=== PATIENT | female | born 1995 | race Caucasian/White ===

== ENCOUNTER 2018-06-10 11:52 | Emergency (ER) | payer MEDICAID, SELFPAY ==
[2018-06-10 11:57] VITALS: BP 132/75; PULSE 87; RESP 18; TEMP 36.7; O2SAT 100
--- NOTE | 2018-06-10 12:20 | DI.US_ITS ---
SYMPTOMS/DIAGNOSIS: RIGHT UPPER QUADRANT ABDOMINAL PAIN X 9 DAYS, NAUSEA ABDOMINAL ULTRASOUND: Routine examination. Comparison is 06/10/17. The visualized liver parenchyma is normal in appearance. There is no evidence of cholelithiasis. The common bile duct is of normal diameter. The pancreas and spleen appear intact. No renal abnormality is seen. The abdominal aorta is of normal diameter. Normal appearance of IVC. IMPRESSION: Normal abdominal ultrasound.
--- NOTE | 2018-06-10 12:22 | W.ED.GENAD ---
Discharge Plan Disposition Patient Disposition: HOME Condition: Improving Discharge Details Chief Complaint: Abd Prob Clinical Impression: Abdominal pain Primary Care Provider: Jean Palm ED Provider: Vaughn Mclaughlin Home Meds and New Rx's Prescriptions: New sucralfate [Carafate] 1 gram tablet 1 gm PO Q6H 28 Days Qty: 112 RF: 0 Continued Mirena 1 EACH intrauterine device 1 ea Intrauterine ONCE Qty: 1 RF: 0 sertraline 50 MG tablet 100 mg PO DAILY RF: 0 Flovent HFA 10.6 GM HFA aerosol inhaler 1 gm Inhalation PRN PRNRF: 0 Discharge Instructions Instructions: Abdominal Pain (ED) Additional Instructions: Home to rest today. Avoid fatty, fried, spicy or tomato-based foods. Please take Carafate as prescribed. Return to the emergency department for any acute concern Medical Decision Making 22-year-old female states she has had 1 week of near constant right upper quadrant abdominal pain associated with nausea and vomiting. Minimally worsened with food. She reports subjective fever and chills. States she was seen at the [facility] on Saturday and had an unremarkable CT scan and blood work. She returns today complaining of ongoing discomfort and intolerance of food.she is afebrile with normal vital signs. She is tender in the right upper quadrant on exam. I obtained and reviewed records from visit to [facility] on June 08. These detail a renal colic CT that shows no acute intra-abdominal process and IUD present in the uterus labs reveal ALT of 15, AST 26, white blood cell count of 8, hematocrit 40 hCG was negative. Urinalysis unremarkable. Today patient has an unremarkable a white cell count and LFTs. Referred for right upper quadrant ultrasound which does not detail any specific acute findings. Given the patient's ongoing discomfort must consider a colitis, therefore she is referred for contrast-enhanced CT scan of the abdomen and pelvis. CT images do not reveal any acute findings other than trace free fluid. Discussed this with the patient. I will treat her for possible duodenal ulcer with a course of Carafate. She understands she may have physiologic trace fluid the fluid from ovarian cyst. Stable for outpatient management. Return precautions were discussed the patient prior to discharge Lab Data Lab results reviewed: Yes I reviewed the patient's lab results. Laboratory Results - last 24 hr 01/08/19 01/08/19 01/08/19 12:30 12:30 12:35 WBC 6.04 RBC 4.89 Hgb 13.5 Hct 41.1 MCV 84.0 MCH 27.6 MCHC 32.8 RDW 14.1 Plt Count 213 MPV 9.6 Immature Gran % 0.2 Neutrophils % 49.3 Lymphocytes % 36.8 Monocytes % 9.8 Eosinophils % 3.6 Basophils % 0.3 Absolute Neutrophils 2.98 Absolute Lymphocytes 2.22 Absolute Monocytes 0.59 Absolute Eosinophils 0.22 Absolute Basophils 0.02 Sodium 139 Potassium 3.8 Chloride 102 Carbon Dioxide 28.6 Anion Gap 8.4 BUN 12 Creatinine 0.76 Estimated GFR/1.73 m2 >= 60.00 Glucose 79 Calcium 9.3 Magnesium 1.7 L Total Bilirubin 1.3 H AST 13 L ALT 18 Alkaline Phosphatase 68 Total Protein 8.3 H Albumin 4.3 Lipase 252 Urine Color Yellow Urine Clarity Clear Urine pH 6.0 Ur Specific [place] 1.020 Urine Protein Negative Urine Ketones Negative Urine Blood Negative Urine Nitrite Negative Urine Bilirubin Negative Urine Urobilinogen 0.2 Ur Leukocyte Esterase Negative Urine Glucose Negative HPI General Mode of arrival: ambulatory. Date/Time Provider Initiated Documentation: 06/10/18 11:59. Limitations to Documentation: no limitations. Information obtained by: patient. History of Present Illness 22 year old F presents to the emergency department with the chief complaint of 1 week of right upper quadrant pain intermittent episodes of emesis. , described as moderate, Quality is described as aching, and is localized to the abdomen. Patient reports no radiation. Patient started experiencing this day(s) and it has been constant. No relieving factors improve symptom(s), No exacerbating factors reported . Patient notes fever/chills, loss of appetite, malaise and nausea/vomiting. Patient did receive the following treatments prior to arrival, none Related Data Home Medications Medication Instructions Recorded Confirmed Flovent HFA 1 gm INHALATION PRN PRN 05/14/15 06/10/18 Mirena 1 ea INTRAUTERINE ONCE #1 implant 01/30/18 06/10/18 sertraline 100 mg PO DAILY tab-cap 01/30/18 06/10/18 sucralfate [Carafate] 1 gm PO Q6H 28 Days #112 tab 06/10/18 Previous Rx's Medication Instructions Recorded sucralfate [Carafate] 1 gm PO Q6H 28 Days #112 tab 06/10/18 Allergies Allergy/AdvReac Type Severity Reaction Status Date / Time pollen extracts Allergy Mild runny nose Unverified 06/10/18 12:02 General Stated Complaint: Abd Prob AYAKA: 3 Review of Systems Review of Systems 6 systems reviewed and otherwise negative [facility] Medical History Asthma affecting , antepartum Surgical History Tonsillectomy and adenoidectomy (06/10/13) Family History Mother No problems noted. Father Neoplasm Sister Asthma Brother No problems noted. Brother No problems noted. Social History Smoking/Tobacco Use Status: Never Exam Narrative Exam Narrative: GEN: awake, alert, oriented 3. Pleasant, well groomed, interactive. HEAD: Normocephalic, atraumatic ENT: Mucous membranes moist, oropharynx unremarkable, External ear exam unremarkable EYES: PERRL, EOMI NECK: Full ROM, no MARCOS, no menigismus CHEST/RESP: Nontender, clear to auscultation bilateral, no wheeze/rhonchi/rales CARDIOVASCULAR: RRR, no murmur, rub james. 2+ Rad pulse bilateral ABDOMEN: Soft, tender in the right upper quadrant without rebound or guarding, no mass. +Bowel sounds EXT: Full ROM, no edema, no rash Neuro: Grossly normal neurologic exam, conversant, interactive. Psych: Speech fluent, thoughts congruent, affect normal Course Vital Signs Temperature 36.7 C 06/10/18 11:57 Pulse 87 06/10/18 11:57 Respiratory Rate 18 06/10/18 11:57 Blood Pressure 132/75 06/10/18 11:57 Pulse Oximetry 100 06/10/18 11:57 Temperature 36.7 C 06/10/18 11:57 Pulse 87 06/10/18 11:57 Respiratory Rate 18 06/10/18 11:57 Blood Pressure 132/75 06/10/18 11:57 Blood Pressure Position Sitting 06/10/18 11:57 Pulse Oximetry 100 06/10/18 11:57
[2018-06-10] MEDS: Normal Saline 1,000 ML 125 ML IV (12:30)
[2018-06-10] MEDS: Ondansetron 4 MG/2 ML VIAL IVP (12:30)
[2018-06-10] MEDS: Ketorolac 30 MG/ML VIAL IVP (12:30)
[2018-06-10 12:36] LABS: Abs Immature Grans 0.01 k/cumm (0.0-0.09); Absolute Basophil Count 0.02 k/cumm (0.0-0.2); Absolute Eosinophil Count 0.22 k/cumm (0.0-0.7); Absolute Lymphocyte Count 2.22 k/cumm (1.2-3.4); Absolute Monocyte Count 0.59 k/cumm (0.11-0.7); Absolute Neutrophil Count 2.98 k/cumm (1.2-6.7); Basophils % 0.3; Eosinophils % 3.6; HCT 41.1 % (36.0-46.0); HGB 13.5 g/dL (12.0-15.5); Immature Grans % 0.2; Lymphocytes % 36.8; Mean Corp. HGB Concentration 32.8 g/dL (32.0-36.0); Mean Corpuscular Hemoglobin 27.6 pg (27.0-33.0); Mean Platelet Volume 9.6 fL (8.0-11.0); Monocytes % 9.8; Neutrophils % 49.3; Platelet Count 213 x1000/uL (130-400); RBC 4.89 m/cumm (4.00-5.20); RBC Distribution Width 14.1 % (11.7-14.6); White Blood Cell Count 6.04 k/cumm (4.4-10.8)
[2018-06-10 12:53] LABS: Bilirubin Negative (Negative); Blood Negative (Negative); Clarity Clear; Glucose Negative (Negative); Ketones Negative (Negative); Leukocyte Esterase Negative (Negative); Nitrite Negative (Negative); Urobilinogen 0.2 EU/dL (Up TO 0.2)
[2018-06-10 12:58] LABS: ALT 18 U/L (12-78); AST 13 U/L (15-37); Albumin 4.3 g/dL (3.4-5.0); Alkaline Phosphatase 68 U/L (46-116); Anion Gap 8.4 mmol/L (3-11); BUN 12 mg/dL (7-18); Bilirubin, Total 1.3 mg/dL (0.2-1.0); CO2 28.6 mmol/L (21.0-32.0); CREATININE 0.76 mg/dL (0.55-1.02); Calcium 9.3 mg/dL (8.5-10.1); Chloride 102 mmol/L (98-107); Glucose 79 mg/dL (70-100); Lipase 252 U/L (73-393); Magnesium 1.7 mg/dL (1.8-2.4); Potassium 3.8 mmol/L (3.5-5.1); Sodium 139 mmol/L (136-145); Total Protein 8.3 g/dL (6.4-8.2)
--- NOTE | 2018-06-10 13:20 | DI.CT_ITS ---
SYMPTOMS/DIAGNOSIS: RIGHT ABDOMINAL PAIN, VOMITING CT SCAN OF THE ABDOMEN AND PELVIS: CT scan of the abdomen and pelvis was performed following the uneventful administration of intravenous and oral contrast material. The lung bases are clear. The liver, spleen, pancreas, gallbladder, bile ducts and adrenal glands are unremarkable. The kidneys are unremarkable, as is the urinary bladder. Note is made of an intrauterine device in good position. The ovaries are present. There appears to be a hemorrhagic cyst on the left ovary. There is a small amount of free fluid in the pelvis, which may be physiologic. The abdominal aorta is of normal caliber. No significant abdominal or pelvic adenopathy or pneumoperitoneum is present. The bowel is unremarkable. There is a normal appendix present. The bones show no acute abnormality. IMPRESSION: 1. A small amount of free fluid in the pelvis with a 1.8 cm cyst on the left ovary. This is likely physiologic. If there is continued concern, a pelvic ultrasound may be considered. 2. No evidence of an acute abdomen. The findings were discussed with the Emergency Department on the date of the examination.
[2018-06-10] MEDS: Omnipaque 350 MG/ML 50 ML BTL IJ (14:52)
[2018-06-10] MEDS: Breeza Beverage 473 ML BTL PO (14:52)
[2018-06-10] MEDS: Omnipaque 350 MG/ML 100 ML BTL IJ (14:53)
[2018-06-10 16:00] VITALS: BP 128/71; PULSE 79; RESP 16; TEMP 36.7; O2SAT 100
== END 2018-06-10 16:16 | disposition home or self-care (01) ==
PROVIDERS: Emergency Provider Emergency Medicine; PCP Family Medicine
DX: R10.11 Right upper quadrant pain (principal); R11.2 Nausea with vomiting, unspecified; Z97.5 Presence of (intrauterine) contraceptive device
CPT/HCPCS: 36415; 80053; 81025; 83690; 96361; 96375; 99285; 74177; 76700; 81003; 83735; 85025; 99283; J1885; J2405; J3490; Q9967

== ENCOUNTER 2019-06-09 16:18 | Outpatient (REF) | payer MEDICAID, SELFPAY ==
--- NOTE | 2019-06-09 15:00 | PAPFT_PTH ---
PATIENT: Albina Thorne LOC: [facility] U#:[id number] AGE/SX: 23/F ROOM: RE06/09/[address]: Mindi Zamudio : 1995 BED: DIS: 06/09/2019 SPEC #: [id number] RECD: 06/09/19 17:13 STATUS: LEXI REQ #: [id number] ALDO: 06/09/19 15:[address]: Mindi Zamudio DEPT: [facility] Cytology RECD BY: Virginia Felix ENTERED: 06/09/19 17:14 SP TYPE: PAPFT OTHR DR: Jean Palm Tissues: 1 - CX/ENDOCX FOR PAP SMEARS Procedures: PAP THIN PREP/UVM Screening Comments: [id number]
[2019-06-11 14:15] LABS: Chlamydia Result Negative (Negative); GC Result Negative (Negative)
== END 2019-06-09 16:38 ==
LOC: LBN 16:18
PROVIDERS: PCP Family Medicine; Visit Provider Advanced Practice Midwife
DX: Z34.91 Encounter for supervision of normal pregnancy, unspecified, first trimester (principal); Z11.3 Encounter for screening for infections with a predominantly sexual mode of transmission; Z12.4 Encounter for screening for malignant neoplasm of cervix
CPT/HCPCS: 87491; 87591; 88142

== ENCOUNTER 2019-06-09 18:30 | Outpatient (REF) | payer MEDICAID, SELFPAY ==
[2019-06-09 17:34] LABS: *AMPHETAMINES SCREEN URINE Negative (Negative); *BARBITURATES SCREEN URINE Negative (Negative); *BENZODIAZEPINES SCREEN URINE Negative (Negative); Cannabinoids THC Negative (Negative); Cocaine Screen,Urine Negative (Negative); METHADONE URINE SCREEN Negative (Negative); OPIATES URINE SCREEN Negative (Negative)
[2019-06-09 17:41] LABS: Tricyclic Antidepressants Negative (Negative)
[2019-06-15 18:39] LABS: Buprenorphine Negative; Norbuprenorphine Negative
== END 2019-06-09 18:50 ==
LOC: LBN 18:30
PROVIDERS: PCP Family Medicine; Visit Provider Advanced Practice Midwife
DX: Z34.91 Encounter for supervision of normal pregnancy, unspecified, first trimester (principal)
CPT/HCPCS: 80307; 87086

== ENCOUNTER 2019-06-15 10:07 | Outpatient (CLI) | payer MEDICAID, SELFPAY ==
[2019-06-15 11:26] LABS: Kit/Specimen SENT
[2019-06-15 11:44] LABS: Abs Immature Grans 0.01 k/cumm (0.0-0.09); Absolute Basophil Count 0.01 k/cumm (0.0-0.2); Absolute Eosinophil Count 0.16 k/cumm (0.0-0.7); Absolute Lymphocyte Count 1.99 k/cumm (1.2-3.4); Absolute Monocyte Count 0.48 k/cumm (0.11-0.7); Absolute Neutrophil Count 4.35 k/cumm (1.2-6.7); Basophils % 0.1; Eosinophils % 2.3; HCT 40.1 % (36.0-46.0); HGB 13.4 g/dL (12.0-15.5); Immature Grans % 0.1 %; Lymphocytes % 28.4; Mean Corp. HGB Concentration 33.4 g/dL (32.0-36.0); Mean Corpuscular Hemoglobin 28.4 pg (27.0-33.0); Mean Platelet Volume 9.7 fL (8.0-11.0); Monocytes % 6.9; Neutrophils % 62.2; Platelet Count 204 x1000/uL (130-400); RBC 4.72 m/cumm (4.00-5.20); RBC Distribution Width 13.5 % (11.7-14.6)
[2019-06-15 12:21] LABS: TSH (W/Ref FT4) 2.14 uIU/mL (0.36-3.74)
[2019-06-16 09:11] LABS: Hepatitis C Ab w Rflx HCV PCR Negative (Negative)
[2019-06-16 09:13] LABS: Hepatitis B Surface Ag Negative (Negative)
[2019-06-16 11:18] LABS: Rubella IgG Ab (UVM) Positive (See Note); Varicella IgG Antibody Positive (See Note)
[2019-06-16 13:11] LABS: Syphilis Total Ab w/Reflex Nonreactive (Nonreactive)
[2019-06-16 13:19] LABS: HIV-1/2 Ag & Ab Screen Negative (Negative)
[2019-06-18 15:14] LABS: Result Summary NEGATIVE; Specimen WB Whole Blood
== END 2019-06-15 10:27 ==
PROVIDERS: PCP Family Medicine; Visit Provider Advanced Practice Midwife
DX: Z34.91 Encounter for supervision of normal pregnancy, unspecified, first trimester (principal); Z36.89 Encounter for other specified antenatal screening
CPT/HCPCS: 36415; 86787; 86803; 86850; 86900; 86901; 87340; 87389; 81220; 84443; 85025; 86762; 86780

== ENCOUNTER 2019-06-26 11:29 | Outpatient (CLI) | payer MEDICAID, SELFPAY | END 2019-06-26 11:49 | PROVIDERS: PCP Family Medicine; Visit Provider Internal Medicine Cardiovascular Disease | DX: R55 Syncope and collapse (principal); I49.3 Ventricular premature depolarization | CPT/HCPCS: 93005; 93010; 93225 ==

== ENCOUNTER 2019-06-29 09:03 | Outpatient (CLI) | payer MEDICAID, SELFPAY ==
--- NOTE | 2019-06-29 10:08 | DI.US_ITS ---
APPROVED REPORT EXAM: Comprehensive 2D, Doppler, and color-flow Echocardiogram Patient Location: Out-Patient Shredder Picker: Maite Herman RDCS (AE) Indications: syncope. Syncope and collapse R55 Conclusion Left Ventricle : The left ventricle is normal size. The left ventricular systolic function is normal. The left ventricular ejection fraction is within the normal range. There is normal left ventricular wall thickness. There is normal LV segmental wall motion. The left ventricular diastolic function is normal. LVEF is estimated to be 55-60%. Right Ventricle : The right ventricle is normal size. The right ventricular systolic function appears normal. Atria : The left atrium size is normal. The right atrium size is normal. Aortic Valve : Aortic valve is trileaflet. No aortic regurgitation is present. There is no aortic isauro vular stenosis. 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 Tr haley mitral regurgitation. Great Vessels : IVC is normal in size and collapses >50% with inspiration. Mid RVSP is 15-18 mmHg. There is no prior echocardiogram available for comparison. Wall motion Left Ventricle The left ventricle is normal size. The left ventricular systolic function is normal. The left ventric ular ejection fraction is within the normal range. There is normal left ventricular wall thickness. T here is normal LV segmental wall motion. The left ventricular diastolic function is normal. LVEF is e stimated to be 55-60%. Right Ventricle The right ventricle is normal size. The right ventricular systolic function appears normal. Atria The left atrium size is normal. The right atrium size is normal. Aortic Valve Aortic valve is trileaflet. There is no aortic valvular stenosis. No aortic regurgitation is present. 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 Trace mitral regu rgitation. Tricuspid Valve The tricuspid valve leaflets are mildly thickened , but open well. Mild tricuspid regurgitation. Pulmonic Valve Mild pulmonic regurgitation. Great Vessels The aortic root is normal in size. IVC is normal in size and collapses >50% with inspiration. Mid RVS P is 15-18 mmHg. Pericardium There is no pericardial effusion. 2D Dimensions IVSd 0.95 cm F: 0.6-1.0 LV EDV A2C 112.1 mL PWd 0.95 cm F: 0.6 - 1.0 LV EDV A4C 107.9 mL LVDd 4.65 cm F: 3.8 - 5.2 LA Volume Index Biplane 23.5 mL/m2 LVDs 3.35 cm F: 2.2 - 3.5 LA Area A4C 14.99 cm2 Aortic Root 2.60 cm F: 2.7 - 3.3 LA Area A2C 13.98 cm2 RA Area A4C 10.47 cm2 EF AP4 58.0 % LVOT 2.10 cm (M/F) 1.5-2.5 EF AP2 59.1 % Ascending Aorta 2.07 cm F: 2.3 - 3.1 EF BP 56.7 % LVEF (Teich) 53.7 % IVC 1.78 cm LVEF (Corey's) 56.69 % F: 54 - 74 TAPSE 1.74 cm (M/F) <1.7 LV Volume 87.74 mL F: 46 - 106 LV Volume Index 50.13 mL/m2 F: 29 - 61 FS 27.60 % LV Diastology MV E' medial 0.127 (>0.07 m/s) E/A Ratio 2.8 LV E/e MED 6.60 (<14) PV S/D Ratio 0.63 MV E' lateral 0.205 (>0.1 m/s) TR Peak Velocity 1.97 m/s LV E/e LAT 4.10 (<14) Pulm Vein s 0.48 m/s Pulm Vein d 0.75 m/s LA vol/ BSA A2C s A-L 21.9 mL/m2 LA vol/ BSA A4C s A-L 21.7 mL/m2 Aortic Valve LVOT Area 3.51 cm2 AoV Area Vmax 2.84 cm2 LVOT Vmax 1.08 m/s AoV Area/ BSA (Vmax) 1.62 cm2/m2 LVOT Mean Ayaan. 0.76 m/s JASPER Mean Ayaan. 2.71 cm2 LVOT Peak Gr. 4.6 mmHg JASPER Mean Ayaan. Index 1.54 cm2/m2 LVOT Mean Gr. 2.6 mmHg LVOT VTI 0.206 m AoV Vmax 1.33 (0.5-1.3 m/s) AoV Mean Ayaan. 0.98 m/s AoV Peak Grad 7.1 mmHg LVOT SV 72.14 mL AoV Mean Grad 4.2 (<5 mmHg) AoV VTI 0.273 (0.18-0.25 m) AoV Area VTI 2.64 (2.5-4.5 cm2) AoV Area/ BSA (VTI) 1.51 cm/m2 Mitral Valve MV E Max Ayaan. 0.84 (0.4-1.3 m/s) RVOT Peak Gr. 2.85 mmHg MV A Velocity 0.30 (0.4-1.3 m/s) RVOT Mean Gr. 1.30 mmHg E/A Ratio 2.44 MV Decel. Time 189 (160-240 msec) MV PHT 55 msec MVA PHT 4.00 cm2 PV Peak Velocity 1.22 (0.5-1.5 m/s) RVOT Peak Ayaan. 0.84 m/s RVOT VTI 0.167 m Tricuspid Valve TR P. Gradient 15.5 mmHg TV Regurg Vmax 1.97 m/s RAP Estimate 3.00 mmHg RVSP 18.6 mmHg
== END 2019-06-29 09:23 ==
PROVIDERS: PCP Family Medicine; Visit Provider Internal Medicine Cardiovascular Disease
DX: R55 Syncope and collapse (principal); I36.8 Other nonrheumatic tricuspid valve disorders; I49.3 Ventricular premature depolarization
CPT/HCPCS: 93226; 93306

== ENCOUNTER 2019-06-29 11:54 | Outpatient (CLI) | payer MEDICAID, SELFPAY ==
--- NOTE | 2019-06-29 12:17 | W.HOLTRPT ---
Date of service: 06/29/19 Time of Service: 12:17 Holter Monitor Report Holter Monitor Note: There is a 2-day Holter monitor ordered for indication of syncope. ?Patient was in normal sinus rhythm for the majority of the recording. ?There were 0 episodes of supraventricular tachycardia and rare (less than 1%) premature atrial contractions. ?There were 0 episodes of ventricular tachycardia 6 single ventricular ectopic beats. ?There were no episodes of atrial fibrillation, no pauses greater than 3 seconds and no evidence of high degree heart block. ?Patient triggered events were associated with normal sinus rhythm and premature atrial contractions.
== END 2019-06-29 12:14 ==
PROVIDERS: PCP Family Medicine; Visit Provider Internal Medicine Cardiovascular Disease
DX: R55 Syncope and collapse (principal); I49.3 Ventricular premature depolarization
CPT/HCPCS: 93226

== ENCOUNTER 2019-08-04 01:56 | Outpatient (CLI) | payer MEDICAID, SELFPAY ==
--- NOTE | 2019-08-04 12:30 | DI.US_ITS ---
EXAM: US OB 2-3 TRIMESTER CLINICAL HISTORY: , Z34.90 TECHNIQUE: Ultrasound performed using standard protocol. COMPARISON: None FINDINGS: The fetus is in breech position. The placenta is anterior and low lying. The tip of the placenta ming ures 1.6 cm from the internal os. Biometric measurements correspond to 19 weeks 1 day. No abnor malities are identified. The amount of amniotic fluid appears visually normal. IMPRESSION: Low-lying placenta. survey is within normal limits. DATA REPOSITORY:
== END 2019-08-04 02:16 ==
PROVIDERS: PCP Family Medicine; Visit Provider Obstetrics & Gynecology
DX: O44.42 Low lying placenta NOS or without hemorrhage, second trimester (principal); Z3A.19 19 weeks gestation of pregnancy
CPT/HCPCS: 76805

== ENCOUNTER 2019-09-18 12:33 | Outpatient (REF) | payer MEDICAID, SELFPAY ==
[2019-09-18 14:24] LABS: ALT 14 U/L (14-59); AST 15 U/L (15-37); Albumin 3.2 g/dL (3.4-5.0); Alkaline Phosphatase 64 U/L (46-116); Anion Gap 9.5 mmol/L (3-11); BUN 8 mg/dL (7-18); Bilirubin, Total 0.7 mg/dL (0.2-1.0); CO2 26.5 mmol/L (21.0-32.0); CREATININE 0.57 mg/dL (0.55-1.02); Calcium 8.4 mg/dL (8.5-10.1); Chloride 102 mmol/L (98-107); Glucose 89 mg/dL (74-106); Potassium 3.8 mmol/L (3.5-5.1); Sodium 138 mmol/L (136-145)
[2019-09-18 17:34] LABS: COMMENT (LAB VIEW ONLY) 139.38 mg/dL; Prot/Crea Ur Ratio 0.12
== END 2019-09-18 12:53 ==
LOC: LBN 12:33
PROVIDERS: PCP Family Medicine; Visit Provider Obstetrics & Gynecology Gynecology
DX: R55 Syncope and collapse (principal); Z3A.25 25 weeks gestation of pregnancy
CPT/HCPCS: 80053; 85027; 82565; 84156

== ENCOUNTER 2019-09-23 17:05 | Observation (INO) | payer MEDICAID, SELFPAY | END 2019-09-23 20:45 | disposition home or self-care (01) | PROVIDERS: Admitting Provider Obstetrics & Gynecology Gynecology; PCP Family Medicine; Visit Provider Obstetrics & Gynecology Gynecology | DX: O46.8X2 Other antepartum hemorrhage, second trimester (principal); O26.892 Other specified pregnancy related conditions, second trimester; Z3A.25 25 weeks gestation of pregnancy; R10.9 Unspecified abdominal pain | CPT/HCPCS: G0378 ==

== ENCOUNTER 2019-09-28 00:27 | Outpatient (CLI) | payer MEDICAID, SELFPAY ==
--- NOTE | 2019-09-28 07:15 | DI.US_ITS ---
EXAM: US OB 2-3 TRIMESTER W MOD CLINICAL HISTORY: light episodic pink vagina discharge 25w EGA,o46.90 TECHNIQUE: Ultrasound performed using standard protocol. COMPARISON: US OB 2-3 TRIMESTER from 08/04/2019 FINDINGS: Ob ultrasound was performed utilizing limited scanning protocol to evaluate placenta and cervix. Pre dicted gestational age is 26 weeks 3 days. Placenta is anterior. The placental tip is 5.3 cm above the internal os, as compared to 1.6 cm from the internal os on prior scan of 08/04/2019. The cervical length is 4.5 cm. There is visually a normal quantity of amniotic fluid. IMPRESSION: DATA REPOSITORY:
== END 2019-09-28 00:47 ==
PROVIDERS: PCP Family Medicine; Visit Provider Obstetrics & Gynecology Gynecology
DX: O26.852 Spotting complicating pregnancy, second trimester (principal); Z3A.26 26 weeks gestation of pregnancy
CPT/HCPCS: 76805

== ENCOUNTER 2019-09-29 14:39 | Outpatient (CLI) | payer MEDICAID, SELFPAY ==
[2019-09-29 15:33] LABS: Abs Immature Grans 0.05 k/cumm (0.0-0.09); Absolute Basophil Count 0.01 k/cumm (0.0-0.2); Absolute Lymphocyte Count 2.05 k/cumm (1.2-3.4); Absolute Monocyte Count 0.84 k/cumm (0.11-0.7); Basophils % 0.1; Eosinophils % 1.8; HCT 38.4 % (36.0-46.0); HGB 12.7 g/dL (12.0-15.5); Immature Grans % 0.5 %; Lymphocytes % 18.9; Mean Corp. HGB Concentration 33.1 g/dL (32.0-36.0); Mean Corpuscular Hemoglobin 29.5 pg (27.0-33.0); Mean Corpuscular Volume 89.1 fL (80-95); Mean Platelet Volume 9.4 fL (8.0-11.0); Monocytes % 7.7; Platelet Count 247 x1000/uL (130-400); RBC 4.31 m/cumm (4.00-5.20); RBC Distribution Width 14.2 % (11.7-14.6); White Blood Cell Count 10.85 k/cumm (4.4-10.8)
[2019-09-29 16:05] LABS: ALT 14 U/L (14-59); AST 13 U/L (15-37); Albumin 3.1 g/dL (3.4-5.0); Alkaline Phosphatase 64 U/L (46-116); Anion Gap 7.6 mmol/L (3-11); BUN 6 mg/dL (7-18); Bilirubin, Total 0.6 mg/dL (0.2-1.0); CO2 26.4 mmol/L (21.0-32.0); CREATININE 0.52 mg/dL (0.55-1.02); Calcium 8.8 mg/dL (8.5-10.1); Chloride 102 mmol/L (98-107); Glucose 94 mg/dL (74-106); Potassium 3.7 mmol/L (3.5-5.1); Sodium 136 mmol/L (136-145); Total Protein 7.5 g/dL (6.4-8.2)
[2019-09-29 16:52] LABS: PROTEIN 12.8 mg/dL
[2019-09-29 16:54] LABS: COMMENT (LAB VIEW ONLY) 90.11 mg/dL; Prot/Crea Ur Ratio 0.14
== END 2019-09-29 14:59 ==
PROVIDERS: PCP Family Medicine; Visit Provider Obstetrics & Gynecology
DX: O13.2 Gestational [pregnancy-induced] hypertension without significant proteinuria, second trimester (principal)
CPT/HCPCS: 80053; 82565; 84156; 85025

== ENCOUNTER 2019-09-30 15:53 | Outpatient (CLI) | payer MEDICAID, SELFPAY ==
[2019-09-30 17:15] LABS: Fetal Fibronectin Negative (Negative)
== END 2019-09-30 16:13 ==
PROVIDERS: PCP Family Medicine; Visit Provider Obstetrics & Gynecology
DX: O26.892 Other specified pregnancy related conditions, second trimester (principal); O13.2 Gestational [pregnancy-induced] hypertension without significant proteinuria, second trimester; Z3A.26 26 weeks gestation of pregnancy
CPT/HCPCS: 59025; 82731

== ENCOUNTER 2019-09-30 15:58 | Outpatient (REF) | payer MEDICAID, SELFPAY ==
[2019-09-30 16:51] LABS: PROTEIN 11.5 mg/dL (0.0-11.9)
[2019-09-30 16:57] LABS: TOTAL PROTEIN,URINE TIMED 94.3 mg/24hr (0.0-149.1); Total Volume 820 ml
== END 2019-09-30 16:18 ==
LOC: LBN 15:58
PROVIDERS: PCP Family Medicine; Visit Provider Obstetrics & Gynecology
DX: O13.2 Gestational [pregnancy-induced] hypertension without significant proteinuria, second trimester (principal)
CPT/HCPCS: 81050; 84155

== ENCOUNTER 2019-10-06 07:45 | Outpatient (CLI) | payer MEDICAID, SELFPAY ==
--- NOTE | 2019-10-06 10:00 | DI.US_ITS ---
EXAM: US OB ESTHER WEIGHT CLINICAL HISTORY: Gestational hypertension,O13.9. COMPARISON: US OB 2-3 TRIMESTER W MOD from 09/28/2019 TECHNIQUE: Transabdominal obstetrical ultrasound performed. FINDINGS: Sonographic images demonstrate a single living intrauterine gestation in breech position. The placenta is anterior and grade 2. Sonographically assessed gestational age is: 28 weeks 5 days Estimated date of delivery based on this ultrasound is: 24 December 2019 Estimated date of delivery based upon 1st ultrasound: 01 January 2020. heart rate motion : Visualized but not measured . Amniotic fluid index: 15.2 cm.. Amount of fluid is within normal limits. Estimated weight 1222 grams = 71 % IMPRESSION: Single live intrauterine gestation as above. DATA REPOSITORY:
== END 2019-10-06 08:05 ==
PROVIDERS: PCP Family Medicine; Visit Provider Obstetrics & Gynecology
DX: O13.3 Gestational [pregnancy-induced] hypertension without significant proteinuria, third trimester (principal); Z3A.28 28 weeks gestation of pregnancy
CPT/HCPCS: 76816

== ENCOUNTER 2019-10-08 11:17 | Observation (INO) | payer MEDICAID, SELFPAY ==
[2019-10-08 11:39] LABS: Abs Immature Grans 0.03 k/cumm (0.0-0.09); Absolute Basophil Count 0.01 k/cumm (0.0-0.2); Absolute Eosinophil Count 0.12 k/cumm (0.0-0.7); Absolute Lymphocyte Count 1.98 k/cumm (1.2-3.4); Absolute Monocyte Count 0.69 k/cumm (0.11-0.7); Absolute Neutrophil Count 6.14 k/cumm (1.2-6.7); Basophils % 0.1; Eosinophils % 1.3; HCT 36.9 % (36.0-46.0); HGB 12.1 g/dL (12.0-15.5); Immature Grans % 0.3 %; Lymphocytes % 22.1; Mean Corp. HGB Concentration 32.8 g/dL (32.0-36.0); Mean Corpuscular Hemoglobin 28.8 pg (27.0-33.0); Mean Corpuscular Volume 87.9 fL (80-95); Mean Platelet Volume 9.4 fL (8.0-11.0); Monocytes % 7.7; Neutrophils % 68.5; Platelet Count 190 x1000/uL (130-400); RBC Distribution Width 13.7 % (11.7-14.6); White Blood Cell Count 8.97 k/cumm (4.4-10.8)
[2019-10-08 12:02] LABS: ALT 15 U/L (14-59); AST 15 U/L (15-37); Albumin 2.9 g/dL (3.4-5.0); Alkaline Phosphatase 67 U/L (46-116); Anion Gap 8.9 mmol/L (3-11); BUN 5 mg/dL (7-18); Bilirubin, Total 0.6 mg/dL (0.2-1.0); CO2 24.1 mmol/L (21.0-32.0); CREATININE 0.51 mg/dL (0.55-1.02); Calcium 8.4 mg/dL (8.5-10.1); Chloride 103 mmol/L (98-107); Glucose 83 mg/dL (74-106); Potassium 3.6 mmol/L (3.5-5.1); Sodium 136 mmol/L (136-145); Total Protein 7.1 g/dL (6.4-8.2)
[2019-10-08 12:02] LABS: PROTEIN 23.2 mg/dL
[2019-10-08 12:04] LABS: COMMENT (LAB VIEW ONLY) 81.03 mg/dL; Prot/Crea Ur Ratio 0.28
== END 2019-10-08 13:25 | disposition home or self-care (01) ==
PROVIDERS: Admitting Provider Obstetrics & Gynecology; PCP Family Medicine; Visit Provider Obstetrics & Gynecology
DX: O26.892 Other specified pregnancy related conditions, second trimester (principal); O13.2 Gestational [pregnancy-induced] hypertension without significant proteinuria, second trimester; Z3A.27 27 weeks gestation of pregnancy
CPT/HCPCS: 36415; 80053; 59025; 82565; 84156; 85025; G0378

== ENCOUNTER 2019-10-10 13:04 | Outpatient (CLI) | payer MEDICAID, SELFPAY | END 2019-10-10 13:24 | PROVIDERS: PCP Family Medicine; Visit Provider Obstetrics & Gynecology | DX: O26.893 Other specified pregnancy related conditions, third trimester (principal); O13.3 Gestational [pregnancy-induced] hypertension without significant proteinuria, third trimester; Z3A.28 28 weeks gestation of pregnancy | CPT/HCPCS: 99211 ==

== ENCOUNTER 2019-10-12 10:59 | Outpatient (CLI) | payer MEDICAID, SELFPAY ==
[2019-10-12 12:18] LABS: HCT 37.1 % (36.0-46.0); HGB 12.3 g/dL (12.0-15.5); Mean Corp. HGB Concentration 33.2 g/dL (32.0-36.0); Mean Corpuscular Hemoglobin 29.1 pg (27.0-33.0); Mean Corpuscular Volume 87.9 fL (80-95); Mean Platelet Volume 9.6 fL (8.0-11.0); Platelet Count 201 x1000/uL (130-400); RBC 4.22 m/cumm (4.00-5.20); RBC Distribution Width 13.7 % (11.7-14.6); White Blood Cell Count 9.71 k/cumm (4.4-10.8)
[2019-10-12 12:24] LABS: Glucose,1 Hr (Glucola) 88 mg/dL (80-140)
[2019-10-12 12:29] LABS: ALT 13 U/L (14-59); AST 14 U/L (15-37); Alkaline Phosphatase 69 U/L (46-116); Anion Gap 8.6 mmol/L (3-11); BUN 5 mg/dL (7-18); Bilirubin, Total 0.6 mg/dL (0.2-1.0); CO2 25.4 mmol/L (21.0-32.0); CREATININE 0.65 mg/dL (0.55-1.02); Calcium 8.4 mg/dL (8.5-10.1); Chloride 103 mmol/L (98-107); Glucose 89 mg/dL (74-106); Potassium 3.6 mmol/L (3.5-5.1); Sodium 137 mmol/L (136-145); Total Protein 6.8 g/dL (6.4-8.2)
[2019-10-12 12:31] LABS: PROTEIN 19.5 mg/dL
[2019-10-12 12:32] LABS: COMMENT (LAB VIEW ONLY) 109.16 mg/dL; Prot/Crea Ur Ratio 0.17
== END 2019-10-12 11:19 ==
PROVIDERS: PCP Family Medicine; Visit Provider Obstetrics & Gynecology
DX: O13.3 Gestational [pregnancy-induced] hypertension without significant proteinuria, third trimester (principal); O09.93 Supervision of high risk pregnancy, unspecified, third trimester
CPT/HCPCS: 80053; 82950; 85027; 86850; 86900; 86901; 90384; 82565; 84156

== ENCOUNTER 2019-10-20 15:15 | Observation (INO) | payer MEDICAID, SELFPAY ==
[2019-10-20 16:21] LABS: ROM Plus Negative
--- NOTE | 2019-10-20 16:30 | W.PM.PROGNOT ---
Date of Service Date of service: 10/20/19 Time of Service: 16:30 Assessment and Plan Assessment and plan (1) Vaginal bleeding during : Status: Acute Assessment and plan: ROM plus negative. ESTHER measured at 16.1. Cx closed on exam. NST appropriate for gestational age. Ok to discharge home. Follow up in the clinic in one week. (2) Gestational hypertension: Status: Acute Subjective Subjective Interval history since last seen: 23 year @ 29 weeks brought from clinic for evaluation of possible leakage of fluid and a small amount of vaginal spotting. She denies contractions. Reports good movement. Exam Other: Cx closed, long. No blood in vaginal vault. Objective Objective Clinical Data: Laboratory Results Membranes Rupture Negative 10/20/19 15:35
== END 2019-10-20 16:33 | disposition home or self-care (01) ==
PROVIDERS: Admitting Provider Obstetrics & Gynecology; PCP Family Medicine; Visit Provider Obstetrics & Gynecology
DX: O46.8X3 Other antepartum hemorrhage, third trimester (principal); Z3A.29 29 weeks gestation of pregnancy; O13.3 Gestational [pregnancy-induced] hypertension without significant proteinuria, third trimester; O60.03 Preterm labor without delivery, third trimester
CPT/HCPCS: 84112; 99232; 59025; G0378

== ENCOUNTER 2019-10-26 16:18 | Observation (INO) | payer MEDICAID, SELFPAY ==
[2019-10-26 17:16] LABS: HCT 36.5 % (36.0-46.0); HGB 12.2 g/dL (12.0-15.5); Mean Corp. HGB Concentration 33.4 g/dL (32.0-36.0); Mean Corpuscular Volume 86.9 fL (80-95); Mean Platelet Volume 9.5 fL (8.0-11.0); Platelet Count 229 x1000/uL (130-400); RBC Distribution Width 13.4 % (11.7-14.6)
[2019-10-26 17:17] LABS: Bilirubin Negative (Negative); Blood Negative (Negative); Clarity Sl Cloudy (Clear); Glucose Negative (Negative); Ketones Negative (Negative); Leukocyte Esterase Small (Negative); Nitrite Negative (Negative); Urobilinogen 0.2 EU/dL (Up TO 0.2)
[2019-10-26 17:25] LABS: ALT 17 U/L (14-59); AST 16 U/L (15-37); Albumin 2.9 g/dL (3.4-5.0); Alkaline Phosphatase 84 U/L (46-116); Anion Gap 8.1 mmol/L (3-11); BUN 5 mg/dL (7-18); Bilirubin, Total 0.6 mg/dL (0.2-1.0); CO2 25.9 mmol/L (21.0-32.0); CREATININE 0.68 mg/dL (0.55-1.02); Calcium 8.1 mg/dL (8.5-10.1); Chloride 103 mmol/L (98-107); Glucose 95 mg/dL (74-106); Potassium 3.3 mmol/L (3.5-5.1); Sodium 137 mmol/L (136-145)
[2019-10-26 17:32] LABS: Bacteria Moderate HPF (Negative); Epithelial Cells Many HPF (Negative); Other Cells Few Yeast (Negative); RBC 0-2 HPF (0-2)
[2019-10-26 17:33] LABS: C & S Indicated? No/Sq. Contamination; Crystals Negative HPF (Negative); Mucus Negative (Negative)
[2019-10-26 17:46] LABS: PROTEIN 12.7 mg/dL
[2019-10-26 17:47] LABS: COMMENT (LAB VIEW ONLY) 126.81 mg/dL
[2019-10-26] MEDS: Cyclobenzaprine 10 MG TAB PO (17:57)
== END 2019-10-26 18:02 | disposition home or self-care (01) ==
PROVIDERS: Admitting Provider Obstetrics & Gynecology; PCP Family Medicine; Visit Provider Obstetrics & Gynecology
DX: O26.893 Other specified pregnancy related conditions, third trimester (principal); Z3A.30 30 weeks gestation of pregnancy
CPT/HCPCS: 36415; 80053; 85027; 81003; 81015; 82565; 84156

== ENCOUNTER 2019-10-27 00:46 | Outpatient (CLI) | payer MEDICAID, SELFPAY ==
--- NOTE | 2019-10-27 06:15 | DI.US_ITS ---
EXAM: US OB ESTHER WEIGHT CLINICAL HISTORY: GESTATIONAL HYPERTENSION,O13.9. TECHNIQUE: Transabdominal obstetrical ultrasound performed. COMPARISON: US US OB ESTHER WEIGHT from 10/06/2019 FINDINGS: Number of fetuses: One. position: Vertex. heart rate: 157 bpm. Placental location: Anterior. No evidence of previa. BIOMETRIC DATA: BPD: 80 millimeters, 32 weeks 1 day HC: 294 millimeters ,32 weeks 3 days AC: 269 millimeters, 31 weeks 0 days FL: 62 millimeters, 32 weeks 0 days EFW: 1784 grms 71% Composite Age: 31 weeks 6 days EDC: 12/23/2019 Amniotic fluid index: 16.1 cm. Amount of fluid is within normal limits. IMPRESSION: 1. Single live intrauterine gestation as above. DATA REPOSITORY:
== END 2019-10-27 01:06 ==
PROVIDERS: PCP Family Medicine; Visit Provider Obstetrics & Gynecology
DX: O13.3 Gestational [pregnancy-induced] hypertension without significant proteinuria, third trimester (principal); Z3A.32 32 weeks gestation of pregnancy
CPT/HCPCS: 76816

== ENCOUNTER 2019-11-18 02:29 | Outpatient (CLI) | payer MEDICAID, SELFPAY ==
--- NOTE | 2019-11-18 12:30 | DI.US_ITS ---
EXAM: US OB ESTHER WEIGHT CLINICAL HISTORY: Gestational hypertension, high-risk 3rd trimester, O09.93, O13.9. TECHNIQUE: Transabdominal obstetrical ultrasound performed. COMPARISON: US US OB ESTHER WEIGHT from 10/27/2019 FINDINGS:: Number of fetuses: One. position: Vertex. Placental location: Anterior. No evidence of previa. BIOMETRIC DATA: BPD: 89mm = 36+ 0 weeks HC: 325mm = 36+ 6 AC: 313mm = 35+1 FL: 72 mm = 36+ 6 EFW: 2799 gms 95% Composite Age: 36 weeks 2 days EDC: 14 December 2019 Heart Rate: 155BPM Amniotic fluid index: 19.0 cm. Amount of fluid is within normal limits. IMPRESSION: size measurements are above the expected range. Estimated weight is at the high normal range. Normal ESTHER. DATA REPOSITORY:
== END 2019-11-18 02:49 ==
PROVIDERS: PCP Family Medicine; Visit Provider Obstetrics & Gynecology
DX: O13.3 Gestational [pregnancy-induced] hypertension without significant proteinuria, third trimester; Z3A.36 36 weeks gestation of pregnancy
CPT/HCPCS: 76816

== ENCOUNTER 2019-11-18 08:50 | Outpatient (CLI) | payer MEDICAID, SELFPAY ==
[2019-11-18 13:54] LABS: HCT 36.1 % (36.0-46.0); HGB 11.9 g/dL (12.0-15.5); Mean Corpuscular Hemoglobin 28.5 pg (27.0-33.0); Mean Corpuscular Volume 86.6 fL (80-95); Mean Platelet Volume 9.7 fL (8.0-11.0); Platelet Count 202 x1000/uL (130-400); RBC 4.17 m/cumm (4.00-5.20); RBC Distribution Width 13.6 % (11.7-14.6); White Blood Cell Count 8.45 k/cumm (4.4-10.8)
[2019-11-18 14:08] LABS: ALT 15 U/L (14-59); AST 17 U/L (15-37); Albumin 2.9 g/dL (3.4-5.0); Alkaline Phosphatase 105 U/L (46-116); Anion Gap 9.5 mmol/L (3-11); BUN 4 mg/dL (7-18); Bilirubin, Total 0.8 mg/dL (0.2-1.0); CO2 26.5 mmol/L (21.0-32.0); CREATININE 0.62 mg/dL (0.55-1.02); Calcium 8.7 mg/dL (8.5-10.1); Chloride 103 mmol/L (98-107); Glucose 95 mg/dL (74-106); Potassium 3.8 mmol/L (3.5-5.1); Sodium 139 mmol/L (136-145); Total Protein 6.9 g/dL (6.4-8.2); Uric Acid 3.8 mg/dL (2.6-6.0)
[2019-11-18 14:53] LABS: PROTEIN 18.4 mg/dL
[2019-11-18 14:55] LABS: COMMENT (LAB VIEW ONLY) 99.93 mg/dL; Prot/Crea Ur Ratio 0.18
== END 2019-11-18 09:10 ==
PROVIDERS: Obstetrics & Gynecology; PCP Family Medicine; Visit Provider Obstetrics & Gynecology Gynecology
DX: O10.013 Pre-existing essential hypertension complicating pregnancy, third trimester (principal); O13.3 Gestational [pregnancy-induced] hypertension without significant proteinuria, third trimester; Z3A.33 33 weeks gestation of pregnancy
CPT/HCPCS: 80053; 85027; 59025; 82565; 84156; 84550

== ENCOUNTER 2019-11-25 08:11 | Outpatient (CLI) | payer MEDICAID, SELFPAY | END 2019-11-25 08:31 | PROVIDERS: PCP Family Medicine; Visit Provider Obstetrics & Gynecology | DX: O13.3 Gestational [pregnancy-induced] hypertension without significant proteinuria, third trimester (principal); Z3A.34 34 weeks gestation of pregnancy | CPT/HCPCS: 59025 ==

== ENCOUNTER 2019-11-27 08:04 | Outpatient (CLI) | payer MEDICAID, SELFPAY | END 2019-11-27 08:24 | PROVIDERS: PCP Family Medicine; Visit Provider Obstetrics & Gynecology | DX: O10.013 Pre-existing essential hypertension complicating pregnancy, third trimester (principal); O13.3 Gestational [pregnancy-induced] hypertension without significant proteinuria, third trimester; Z3A.35 35 weeks gestation of pregnancy | CPT/HCPCS: 59025 ==

== ENCOUNTER 2019-11-29 11:18 | Outpatient (CLI) | payer MEDICAID, SELFPAY ==
[2019-11-29 11:48] LABS: HGB 11.9 g/dL (12.0-15.5); Mean Corp. HGB Concentration 33.1 g/dL (32.0-36.0); Mean Corpuscular Hemoglobin 28.3 pg (27.0-33.0); Mean Corpuscular Volume 85.5 fL (80-95); Mean Platelet Volume 9.7 fL (8.0-11.0); Platelet Count 186 x1000/uL (130-400); RBC 4.21 m/cumm (4.00-5.20); RBC Distribution Width 13.6 % (11.7-14.6); White Blood Cell Count 9.04 k/cumm (4.4-10.8)
[2019-11-29 11:55] LABS: Anion Gap 10.3 mmol/L (3-11); BUN 4 mg/dL (7-18); CO2 22.7 mmol/L (21.0-32.0); CREATININE 0.66 mg/dL (0.55-1.02); Calcium 8.1 mg/dL (8.5-10.1); Chloride 103 mmol/L (98-107); Glucose 78 mg/dL (74-106); Potassium 3.6 mmol/L (3.5-5.1); Sodium 136 mmol/L (136-145)
[2019-11-29 13:51] LABS: PROTEIN 7.1 mg/dL
[2019-11-29 13:53] LABS: COMMENT (LAB VIEW ONLY) 80.23 mg/dL; Prot/Crea Ur Ratio 0.08
== END 2019-11-29 11:38 ==
PROVIDERS: PCP Family Medicine; Visit Provider Obstetrics & Gynecology
DX: O10.013 Pre-existing essential hypertension complicating pregnancy, third trimester (principal); O13.3 Gestational [pregnancy-induced] hypertension without significant proteinuria, third trimester; Z3A.35 35 weeks gestation of pregnancy
CPT/HCPCS: 36415; 80048; 85027; 59025; 82565; 84156

== ENCOUNTER 2019-12-01 11:59 | Observation (INO) | payer MEDICAID, SELFPAY ==
[2019-12-01 12:20] LABS: HCT 36.7 % (36.0-46.0); HGB 12.2 g/dL (12.0-15.5); Mean Corp. HGB Concentration 33.2 g/dL (32.0-36.0); Mean Corpuscular Hemoglobin 28.4 pg (27.0-33.0); Mean Corpuscular Volume 85.5 fL (80-95); Mean Platelet Volume 9.8 fL (8.0-11.0); Platelet Count 196 x1000/uL (130-400); RBC 4.29 m/cumm (4.00-5.20); RBC Distribution Width 13.8 % (11.7-14.6); White Blood Cell Count 9.88 k/cumm (4.4-10.8)
[2019-12-01 12:28] LABS: ALT 12 U/L (14-59); AST 15 U/L (15-37); Albumin 2.9 g/dL (3.4-5.0); Alkaline Phosphatase 122 U/L (46-116); Anion Gap 9.1 mmol/L (3-11); BUN 4 mg/dL (7-18); Bilirubin, Total 0.8 mg/dL (0.2-1.0); CO2 22.9 mmol/L (21.0-32.0); Calcium 8.3 mg/dL (8.5-10.1); Chloride 103 mmol/L (98-107); Glucose 85 mg/dL (74-106); Potassium 3.6 mmol/L (3.5-5.1); Sodium 135 mmol/L (136-145); Total Protein 6.8 g/dL (6.4-8.2)
[2019-12-01] MEDS: Ondansetron O.D.T. 4 MG TABEF PO (15:06)
[2019-12-01 15:09] LABS: *AMPHETAMINES SCREEN URINE Negative (Negative); *BARBITURATES SCREEN URINE Negative (Negative); *BENZODIAZEPINES SCREEN URINE Negative (Negative); Cannabinoids THC Negative (Negative); Cocaine Screen,Urine Negative (Negative); METHADONE URINE SCREEN Negative (Negative); OPIATES URINE SCREEN Negative (Negative)
[2019-12-01 15:10] LABS: Tricyclic Antidepressants Negative (Negative)
[2019-12-07 12:11] LABS: Buprenorphine Negative; Norbuprenorphine Negative
== END 2019-12-01 16:30 | disposition home or self-care (01) ==
PROVIDERS: Admitting Provider Obstetrics & Gynecology; PCP Family Medicine; Visit Provider Obstetrics & Gynecology
DX: O13.3 Gestational [pregnancy-induced] hypertension without significant proteinuria, third trimester (principal); Z3A.35 35 weeks gestation of pregnancy; Z36.85 Encounter for antenatal screening for Streptococcus B
CPT/HCPCS: 36415; 80053; 80307; 85027; 59025; 82565; 84156; 87081; G0378

== ENCOUNTER 2019-12-03 09:38 | Outpatient (CLI) | payer MEDICAID, SELFPAY | END 2019-12-03 09:58 | PROVIDERS: PCP Family Medicine; Visit Provider Obstetrics & Gynecology | DX: O10.013 Pre-existing essential hypertension complicating pregnancy, third trimester (principal); O13.3 Gestational [pregnancy-induced] hypertension without significant proteinuria, third trimester; Z3A.35 35 weeks gestation of pregnancy | CPT/HCPCS: 59025 ==

== ENCOUNTER 2019-12-08 13:08 | Outpatient (CLI) | payer MEDICAID, SELFPAY | END 2019-12-08 13:28 | PROVIDERS: PCP Family Medicine; Visit Provider Obstetrics & Gynecology | DX: O10.013 Pre-existing essential hypertension complicating pregnancy, third trimester (principal); O13.3 Gestational [pregnancy-induced] hypertension without significant proteinuria, third trimester; Z3A.36 36 weeks gestation of pregnancy | CPT/HCPCS: 59025 ==

== ENCOUNTER 2019-12-11 07:56 | Inpatient (IN) | payer MEDICAID, SELFPAY ==
--- NOTE | 2019-12-11 08:05 | HPE_ITS ---
Date of service: 12/11/19 Time of Service: 08:05 Assessment and Plan Assessment and plan (1) High-risk in third trimester: Status: Acute Assessment and plan: Patient is a 24-year-old 3 para 1-0-1-1 at 37 weeks gestation today. She has a known history of gestational hypertension her blood pressures have been as high as 150s over 100s. She has had normal laboratory studies to this point. In light of this induction of labor will be started today starting with cervical ripening. Risks and benefits of this have been explained to the. She is low risk for shoulder dystocia and average risk for hemorrhage. Pediatrics have been notified of her labor induction and indications. She will of cervical ripening with Cytotec, Pitocin augmentation as needed, rupture of membranes as indicated, pain control as needed. Will obtain laboratory studies today including CBC CMP and type and screen. She will also had COVID testing done today. My anticipation would be for spontaneous va ginal delivery. She is group B strep negative and negative for gestational diabetes. (2) Gestational hypertension: Status: Acute (3) Rh negative state in antepartum period: Status: Acute (4) Anxiety: Status: Chronic (5) History of frequent headaches: Status: Acute History of Present Illness History of Present Illness Chief Complaint: Labor induction at 37 weeks due to gestational hypertension Review of Systems Narrative: Patient seen and examined this morning. Baby's been active. She has some cramping. She denies nausea or vomiting or signs or symptoms of preec lampsia today All systems reviewed & are unremarkable except as noted in HPI and below Constitutional Constitutional: Reports as per HPI Cardiovascular Cardiovascular: Reports system reviewed and no additional complaints, except as documented Respiratory Respiratory: Reports system reviewed and no additional complaints, except as documented Gastrointestinal Gastrointestinal: Reports system reviewed and no additional complaints, except as documented Neurologic Neurologic: Reports system reviewed and no additional complaints, except as documented Comments: Patient has had headaches throughout . Psychiatric Psychiatric: Reports system reviewed and no additional complaints, except as documented [facility] Medical History Abdominal pain during (Acute) 09/23/2019 Rx with Nexium Anxiety (Chronic) Asthma affecting , antepartum Encounter for IUD removal (Resolved) Gestational hypertension (Acute) 09/18/2019. Onset of BPs 152/82. Negative CMP. urine P/C ratio 1.2 High-risk in second trimester (Acute) History of frequent headaches (Acute) 09/2019 no relief with Fioricet. History of depression, currently in first trimester (Acute) Nausea and vomiting during (Acute) Ondansetron not effective. 09/17/2019 will begin Reglan. Patient will follow-up 09/21/2019 regarding symptoms Preeclampsia (Acute) (Acute) 05/19/19. ANGEL 01/03/20. Seasonal allergies (Acute) Vaginal bleeding during (Acute) Surgical History Tonsillectomy and adenoidectomy (06/10/13) Family History Mother Asthma Father Neoplasm stomach cancer age 17 remission now Sister Asthma Brother Asthma Brother ADHD Paternal Grandmother Diabetes Paternal Grandfather Cancer liver CA Social History Smoking/Tobacco Use Status: Never Drug use: Never Household members: significant other, children and other Details: [facility] Number of Children: 1 Current gender identity: female What type of physical activity do you participate in: walking Do you feel safe in your relationship?: Yes History History 3 Para 1 Hx # Term Pregnancies 1 Multiple births Hx # Pregnancies Ectopic pregnancies AB induced Hx Number of Living Children AB spontaneous 1 Past Pregnancies Del. Date GA/Weeks # Outcome Route Wgt Sex Labor Lgth Anesthes ia Location [facility] 06/04/16 Unsuccessful 10/28/17 No Successful vaginal 7 lb 11 oz Female [address] Mendoza [facility] Delivery Date: 06/04/16 SAB no D and C Mindi Zamudio Delivery Date: 10/28/17 GHTN, H/As, edema beginning 35w. IOL @ 39w. HTN resolved . Debbie Saeed Home Medications and Allergies Home Medications Medication Instructions Recorded Confirmed Type prenat.vits,zulema,gzr-jhgz-ztpjp 1 tab PO DAILY 05/19/19 12/01/19 History ngwxnohmiw-mlfzouhakoxpt-ksllzzic 1 cap PO Q6H PRN #30 cap 07/07/19 12/01/19 Rx 50 mg-300 mg-40 mg capsule acetaminophen 500 mg capsule 500 mg PO Q6H PRN #1 cap 09/02/19 12/01/19 Rx sumatriptan succinate 50 mg tablet See Rx Instructions PO .COMPLEX 09/10/19 12/01/19 Rx #10 tab esomeprazole magnesium 40 mg 40 mg PO DAILY #60 cap 09/28/19 12/01/19 Rx capsule,delayed release cyclobenzaprine 5 mg tablet 5 mg PO TID PRN #20 tab 11/17/19 12/01/19 Rx metoclopramide HCl 10 mg tablet 10 mg PO Q6H PRN #10 tab 12/08/19 Rx Allergies Allergy/AdvReac Type Severity Reaction Status Date / Time pollen extracts Allergy Mild runny nose Verified 12/01/19 11:08 Exam Const General: cooperative, healthy appearing, comfortable and no acute distress Nutritional Appearance: average body habitus Orientation: alert and oriented x3 Eyes General: appearance normal, both eyes and all related structures Resp Effort & Inspection: normal respiratory effort Cardio Rate: regular rate External Female Exam: normal external appearance Speculum Exam - Vagina: normal appearance of the vagina Manual OB Exam: dilated fingertip, effaced 25%, station high and other Skin General skin exam: no rashes or lesions noted Neuro General: patient alert and patient oriented x3 Cranial Nerves: CN's II-XI intact bilaterally Cognition: normal cognition Speech: speech normal Extrem General: normal to inspection, no clubbing, cyanosis or edema and no calf t enderness Results Labs Result diagrams: 12/11/19 Unknown 12/11/19 08:03 COVID-19 Screening Have you,or household,traveled outside [place] in last 14 days?: TRAVEL NO
[2019-12-11] MEDS: miSOPROStol 25 MCG TAB PO (08:41)
[2019-12-11 08:43] LABS: HCT 37.8 % (36.0-46.0); HGB 12.5 g/dL (12.0-15.5); Mean Corp. HGB Concentration 33.1 g/dL (32.0-36.0); Mean Corpuscular Hemoglobin 28.2 pg (27.0-33.0); Mean Corpuscular Volume 85.3 fL (80-95); Platelet Count 167 x1000/uL (130-400); RBC 4.43 m/cumm (4.00-5.20); RBC Distribution Width 14.2 % (11.7-14.6); White Blood Cell Count 8.95 k/cumm (4.4-10.8)
[2019-12-11] MEDS: Normal Saline Flush 10 ML SYR IVP ×3 (08:45→22:34)
[2019-12-11 08:58] LABS: ALT 10 U/L (14-59); AST 15 U/L (15-37); Albumin 2.8 g/dL (3.4-5.0); Alkaline Phosphatase 140 U/L (46-116); Anion Gap 9.5 mmol/L (3-11); BUN 3 mg/dL (7-18); CO2 24.5 mmol/L (21.0-32.0); CREATININE 0.57 mg/dL (0.55-1.02); Calcium 8.5 mg/dL (8.5-10.1); Chloride 104 mmol/L (98-107); Glucose 87 mg/dL (74-106); Potassium 3.5 mmol/L (3.5-5.1); Sodium 138 mmol/L (136-145); Total Protein 6.9 g/dL (6.4-8.2)
[2019-12-11 11:49] LABS: PROTEIN 10.4 mg/dL
[2019-12-11 11:51] LABS: COMMENT (LAB VIEW ONLY) 74.64 mg/dL; Prot/Crea Ur Ratio 0.13
[2019-12-11] MEDS: Ondansetron 4 MG/2 ML VIAL IVP ×2 (14:53→22:34)
[2019-12-11] MEDS: Acetaminophen 325 MG TAB 650 MG PO (15:30)
[2019-12-11] MEDS: Lactated Ringers 1,000 ML 125 ML IV (17:49)
[2019-12-11] MEDS: Oxytocin/Normal Saline 30 UNITS/500 ML BAG IV (17:50)
--- NOTE | 2019-12-11 21:07 | W.PM.PROGNOT ---
Date of Service Date of service: 12/11/19 Time of Service: 21:07 Subjective Subjective Interval history since last seen: Patient seen. Pitocin at 5 with UC q 2monutes. SVE unchanged Will decrease pit to 3, continue to monitor. AROM when able KJ Objective Objective Clinical Data: Abnormal lab results 12/11/19 Range/Units 08:30 BUN 3 L (7-18) mg/dL ALT 10 L (14-59) U/L Alkaline Phosphatase 140 H (46-116) U/L Albumin 2.8 L (3.4-5.0) g/dL Vital Signs Pain Level 6 12/11/19 15:30 Intake & Output 12/10/19 12/11/19 12/11/19 23:59 11:59 23:59 Intake Total 0.733 / 0.733 Balance 0.733 / 0.733 Intake: IV 0.733 / 0.733 Laboratory Results WBC 8.95 k/cumm (4.4-10.8) 12/11/19 08:30 RBC 4.43 m/cumm (4.00-5.20) 12/11/19 08:30 Hgb 12.5 g/dL (12.0-15.5) 12/11/19 08:30 Hct 37.8 % (36.0-46.0) 12/11/19 08:30 MCV 85.3 fL (80-95) 12/11/19 08:30 MCH 28.2 pg (27.0-33.0) 12/11/19 08:30 MCHC 33.1 g/dL (32.0-36.0) 12/11/19 08:30 RDW 14.2 % (11.7-14.6) 12/11/19 08:30 Plt Count 167 x1000/uL (130-400) 12/11/19 08:30 MPV 10.0 fL (8.0-11.0) 12/11/19 08:30 Sodium 138 mmol/L (136-145) 12/11/19 08:30 Potassium 3.5 mmol/L (3.5-5.1) 12/11/19 08:30 Chloride 104 mmol/L (98-107) 12/11/19 08:30 Carbon Dioxide 24.5 mmol/L (21.0-32.0) 12/11/19 08:30 Anion Gap 9.5 mmol/L (3-11) 12/11/19 08:30 BUN 3 mg/dL (7-18) L 12/11/19 08:30 Creatinine 0.57 mg/dL (0.55-1.02) 12/11/19 08:30 Estimated GFR/1.73 m2 >= 60.00 (mL/min/1.73m2) 12/11/19 08:30 Glucose 87 mg/dL (74-106) 12/11/19 08:30 Calcium 8.5 mg/dL (8.5-10.1) 12/11/19 08:30 Total Bilirubin 1.0 mg/dL (0.2-1.0) 12/11/19 08:30 AST 15 U/L (15-37) 12/11/19 08:30 ALT 10 U/L (14-59) L 12/11/19 08:30 Alkaline Phosphatase 140 U/L (46-116) H 12/11/19 08:30 Total Protein 6.9 g/dL (6.4-8.2) 12/11/19 08:30 Albumin 2.8 g/dL (3.4-5.0) L 12/11/19 08:30 Ur Random Creatinine 74.64 mg/dL 12/11/19 10:50 U Random Total Protein 10.4 mg/dL 12/11/19 10:50 U [place] Prot/Creat Ratio 0.13 12/11/19 10:50 Patient ABO/Rh B Negative 12/11/19 08:30 Antibody Screen Positive 12/11/19 08:30 Antibody Identification Anti-D 12/11/19 08:30
[2019-12-12 03:02] LABS: COVID-19 RT-PCR UVMMC Result Negative (Negative)
--- NOTE | 2019-12-12 05:12 | W.PM.PROGNOT ---
Date of Service Date of service: 12/12/19 Time of Service: 05:12 Subjective Subjective Interval history since last seen: Patient with dysfunctional labor pattern. Long uterine contraction with pit at 4. Pit D/C'd. FHTS 130s. Category 1 strip. No substantial cervical change. Will allow ambulation and restart induction in 1-2 hours KJ Objective Objective Clinical Data: Abnormal lab results 12/11/19 Range/Units 08:30 BUN 3 L (7-18) mg/dL ALT 10 L (14-59) U/L Alkaline Phosphatase 140 H (46-116) U/L Albumin 2.8 L (3.4-5.0) g/dL Vital Signs Pain Level 6 12/11/19 15:30 Intake & Output 12/11/19 12/11/19 12/12/19 11:59 23:59 11:59 Intake Total 0.733 / 0.733 Balance 0.733 / 0.733 Intake: IV 0.733 / 0.733 Laboratory Results WBC 8.95 k/cumm (4.4-10.8) 12/11/19 08:30 RBC 4.43 m/cumm (4.00-5.20) 12/11/19 08:30 Hgb 12.5 g/dL (12.0-15.5) 12/11/19 08:30 Hct 37.8 % (36.0-46.0) 12/11/19 08:30 MCV 85.3 fL (80-95) 12/11/19 08:30 MCH 28.2 pg (27.0-33.0) 12/11/19 08:30 MCHC 33.1 g/dL (32.0-36.0) 12/11/19 08:30 RDW 14.2 % (11.7-14.6) 12/11/19 08:30 Plt Count 167 x1000/uL (130-400) 12/11/19 08:30 MPV 10.0 fL (8.0-11.0) 12/11/19 08:30 Sodium 138 mmol/L (136-145) 12/11/19 08:30 Potassium 3.5 mmol/L (3.5-5.1) 12/11/19 08:30 Chloride 104 mmol/L (98-107) 12/11/19 08:30 Carbon Dioxide 24.5 mmol/L (21.0-32.0) 12/11/19 08:30 Anion Gap 9.5 mmol/L (3-11) 12/11/19 08:30 BUN 3 mg/dL (7-18) L 12/11/19 08:30 Creatinine 0.57 mg/dL (0.55-1.02) 12/11/19 08:30 Estimated GFR/1.73 m2 >= 60.00 (mL/min/1.73m2) 12/11/19 08:30 Glucose 87 mg/dL (74-106) 12/11/19 08:30 Calcium 8.5 mg/dL (8.5-10.1) 12/11/19 08:30 Total Bilirubin 1.0 mg/dL (0.2-1.0) 12/11/19 08:30 AST 15 U/L (15-37) 12/11/19 08:30 ALT 10 U/L (14-59) L 12/11/19 08:30 Alkaline Phosphatase 140 U/L (46-116) H 12/11/19 08:30 Total Protein 6.9 g/dL (6.4-8.2) 12/11/19 08:30 Albumin 2.8 g/dL (3.4-5.0) L 12/11/19 08:30 Ur Random Creatinine 74.64 mg/dL 12/11/19 10:50 U Random Total Protein 10.4 mg/dL 12/11/19 10:50 U [place] Prot/Creat Ratio 0.13 12/11/19 10:50 COVID-19 PCR Negative (Negative) 12/11/19 08:50 Nasopharyn COVID-19 PCR Not Applicable 12/11/19 08:50 Ref Test Perform Site [facility] lab 12/11/19 08:50 Patient ABO/Rh B Negative 12/11/19 08:30 Antibody Screen Positive 12/11/19 08:30 Antibody Identification Anti-D 12/11/19 08:30
--- NOTE | 2019-12-12 14:00 | PGE_ITS ---
Date of Service Date of service: 12/12/19 Time of Service: 14:00 Subjective Subjective Interval history since last seen: More uncomfortable with regular contractions Exam Narrative Exam Narrative: Leung ballooon deflated and removed from vagina. SVE 40, 50% very posterior. AROM attempt, scant fluid. Will re-check in 1 hour Objective Objective Clinical Data: Vital Signs Pain Level 6 12/11/19 15:30 Intake & Output 12/11/19 12/12/19 12/12/19 23:59 11:59 23:59 Intake Total 0.733 / 0.733 Balance 0.733 / 0.733 Intake: IV 0.733 / 0.733 Laboratory Results WBC 8.95 k/cumm (4.4-10.8) 12/11/19 08:30 RBC 4.43 m/cumm (4.00-5.20) 12/11/19 08:30 Hgb 12.5 g/dL (12.0-15.5) 12/11/19 08:30 Hct 37.8 % (36.0-46.0) 12/11/19 08:30 MCV 85.3 fL (80-95) 12/11/19 08:30 MCH 28.2 pg (27.0-33.0) 12/11/19 08:30 MCHC 33.1 g/dL (32.0-36.0) 12/11/19 08:30 RDW 14.2 % (11.7-14.6) 12/11/19 08:30 Plt Count 167 x1000/uL (130-400) 12/11/19 08:30 MPV 10.0 fL (8.0-11.0) 12/11/19 08:30 Sodium 138 mmol/L (136-145) 12/11/19 08:30 Potassium 3.5 mmol/L (3.5-5.1) 12/11/19 08:30 Chloride 104 mmol/L (98-107) 12/11/19 08:30 Carbon Dioxide 24.5 mmol/L (21.0-32.0) 12/11/19 08:30 Anion Gap 9.5 mmol/L (3-11) 12/11/19 08:30 BUN 3 mg/dL (7-18) L 12/11/19 08:30 Creatinine 0.57 mg/dL (0.55-1.02) 12/11/19 08:30 Estimated GFR/1.73 m2 >= 60.00 (mL/min/1.73m2) 12/11/19 08:30 Glucose 87 mg/dL (74-106) 12/11/19 08:30 Calcium 8.5 mg/dL (8.5-10.1) 12/11/19 08:30 Total Bilirubin 1.0 mg/dL (0.2-1.0) 12/11/19 08:30 AST 15 U/L (15-37) 12/11/19 08:30 ALT 10 U/L (14-59) L 12/11/19 08:30 Alkaline Phosphatase 140 U/L (46-116) H 12/11/19 08:30 Total Protein 6.9 g/dL (6.4-8.2) 12/11/19 08:30 Albumin 2.8 g/dL (3.4-5.0) L 12/11/19 08:30 Ur Random Creatinine 74.64 mg/dL 12/11/19 10:50 U Random Total Protein 10.4 mg/dL 12/11/19 10:50 U [place] Prot/Creat Ratio 0.13 12/11/19 10:50 COVID-19 PCR Negative (Negative) 12/11/19 08:50 Nasopharyn COVID-19 PCR Not Applicable 12/11/19 08:50 Ref Test Perform Site [facility] lab 12/11/19 08:50 Patient ABO/Rh B Negative 12/11/19 08:30 Antibody Screen Positive 12/11/19 08:30 Antibody Identification Anti-D 12/11/19 08:30
--- NOTE | 2019-12-12 16:40 | W.PM.PROGNOT ---
Date of Service Date of service: 12/12/19 Time of Service: 16:40 Assessment and Plan Assessment and plan (1) High-risk in third trimester: Status: Acute Assessment and plan: Continue labor induction with pitocin, now AROM. Expectanat ,management. Patient does not desire analgesia KJ (2) Gestational hypertension: Status: Acute Subjective Subjective Interval history since last seen: Now out of tub. Feeling more pressure. Baby is active Exam Amniotic Fluid: clear Other: SVE 4 cm, posterior, 50%. AROM, clear fluid. Objective Objective Clinical Data: Vital Signs Pain Level 6 12/11/19 15:30 Intake & Output 12/11/19 12/12/19 12/12/19 23:59 11:59 23:59 Intake Total 0.733 / 0.733 Balance 0.733 / 0.733 Intake: IV 0.733 / 0.733 Laboratory Results WBC 8.95 k/cumm (4.4-10.8) 12/11/19 08:30 RBC 4.43 m/cumm (4.00-5.20) 12/11/19 08:30 Hgb 12.5 g/dL (12.0-15.5) 12/11/19 08:30 Hct 37.8 % (36.0-46.0) 12/11/19 08:30 MCV 85.3 fL (80-95) 12/11/19 08:30 MCH 28.2 pg (27.0-33.0) 12/11/19 08:30 MCHC 33.1 g/dL (32.0-36.0) 12/11/19 08:30 RDW 14.2 % (11.7-14.6) 12/11/19 08:30 Plt Count 167 x1000/uL (130-400) 12/11/19 08:30 MPV 10.0 fL (8.0-11.0) 12/11/19 08:30 Sodium 138 mmol/L (136-145) 12/11/19 08:30 Potassium 3.5 mmol/L (3.5-5.1) 12/11/19 08:30 Chloride 104 mmol/L (98-107) 12/11/19 08:30 Carbon Dioxide 24.5 mmol/L (21.0-32.0) 12/11/19 08:30 Anion Gap 9.5 mmol/L (3-11) 12/11/19 08:30 BUN 3 mg/dL (7-18) L 12/11/19 08:30 Creatinine 0.57 mg/dL (0.55-1.02) 12/11/19 08:30 Estimated GFR/1.73 m2 >= 60.00 (mL/min/1.73m2) 12/11/19 08:30 Glucose 87 mg/dL (74-106) 12/11/19 08:30 Calcium 8.5 mg/dL (8.5-10.1) 12/11/19 08:30 Total Bilirubin 1.0 mg/dL (0.2-1.0) 12/11/19 08:30 AST 15 U/L (15-37) 12/11/19 08:30 ALT 10 U/L (14-59) L 12/11/19 08:30 Alkaline Phosphatase 140 U/L (46-116) H 12/11/19 08:30 Total Protein 6.9 g/dL (6.4-8.2) 12/11/19 08:30 Albumin 2.8 g/dL (3.4-5.0) L 12/11/19 08:30 Ur Random Creatinine 74.64 mg/dL 12/11/19 10:50 U Random Total Protein 10.4 mg/dL 12/11/19 10:50 U [place] Prot/Creat Ratio 0.13 12/11/19 10:50 COVID-19 PCR Negative (Negative) 12/11/19 08:50 Nasopharyn COVID-19 PCR Not Applicable 12/11/19 08:50 Ref Test Perform Site [facility] lab 12/11/19 08:50 Patient ABO/Rh B Negative 12/11/19 08:30 Antibody Screen Positive 12/11/19 08:30 Antibody Identification Anti-D 12/11/19 08:30
[2019-12-12] MEDS: fentaNYL 100 MCG/2 ML VIAL 25 MCG IVP (18:57)
--- NOTE | 2019-12-12 19:46 | W.PM.OP ---
Date of service: 12/12/19 Time of Service: 19:46 Operative Note Operative Note DATE OF PROCEDURE: 12/12/19 PRE-OP DIAGNOSIS: Labor induction at 37 weeks Gestational hypertension POST-OP DIAGNOSIS: same PROCEDURE: SURGEON: Tita Madrigal ANESTHESIA: none ESTIMATED BLOOD LOSS: 200 PATHOLOGY: none sent COMPLICATIONS: None Findings: Procedure Description: Patient was complete and with good maternal effort delivered a viable male followed by in tact placenta. 2nd degree laceration repaired with 3'0 vicryl and hemosatic
[2019-12-12] MEDS: Hamamelis Leaf/Glycerin 100 EACH BOX PR (22:00)
[2019-12-12] MEDS: Acetaminophen 325 MG TAB 650 MG PO (23:22)
[2019-12-12] MEDS: Ondansetron 4 MG/2 ML VIAL IVP (23:23)
[2019-12-13] MEDS: Acetaminophen 325 MG TAB 650 MG PO ×2 (06:45→15:28)
[2019-12-13 08:05] LABS: HCT 34.7 % (36.0-46.0); HGB 11.3 g/dL (12.0-15.5); Mean Corp. HGB Concentration 32.6 g/dL (32.0-36.0); Mean Corpuscular Volume 86.1 fL (80-95); Mean Platelet Volume 10.2 fL (8.0-11.0); Platelet Count 184 x1000/uL (130-400); RBC 4.03 m/cumm (4.00-5.20); RBC Distribution Width 14.3 % (11.7-14.6); White Blood Cell Count 13.75 k/cumm (4.4-10.8)
--- NOTE | 2019-12-13 10:10 | PGE_ITS ---
Date of Service Date of service: 12/13/19 Time of Service: 10:10 Assessment and Plan Assessment and plan (1) (normal spontaneous vaginal delivery): Status: Acute Assessment and plan: Doing well post . Anticipate D/C 12/13 (2) Gestational hypertension: Status: Acute Assessment and plan: BPs are stable. No signs and symptoms of pre- eclampsia (3) Rh negative state in antepartum period: Status: Acute Assessment and plan: Baby is Rh negative. No rho cody indicated Subjective Subjective Patient reports: no new complaints, pain is less and tolerating a regular diet; denies nausea Exam Const General: cooperative, healthy appearing, comfortable and no acute distress Eyes General: appearance normal, both eyes and all related structures Resp Effort & Inspection: normal respiratory effort Cardio Rate: regular rate Rhythm: regular rhythm GI Inspection: normal to inspection Palpation: soft Skin General skin exam: no rashes or lesions noted Extrem General: normal to inspection, no calf tenderness and edema (1+) Objective Objective Clinical Data: Abnormal lab results 12/13/19 Range/Units 07:02 WBC 13.75 H (4.4-10.8) k/cumm Hgb 11.3 L (12.0-15.5) g/dL Hct 34.7 L (36.0-46.0) % Vital Signs Pain Level 7 12/13/19 06:45 Intake & Output 12/12/19 12/12/19 12/13/19 11:59 23:59 11:59 Intake Total 500 / 500 Balance 500 / 500 Intake: IV 500 / 500 Laboratory Results WBC 13.75 k/cumm (4.4-10.8) H 12/13/19 07:02 RBC 4.03 m/cumm (4.00-5.20) 12/13/19 07:02 Hgb 11.3 g/dL (12.0-15.5) L 12/13/19 07:02 Hct 34.7 % (36.0-46.0) L 12/13/19 07:02 MCV 86.1 fL (80-95) 12/13/19 07:02 MCH 28.0 pg (27.0-33.0) 12/13/19 07:02 MCHC 32.6 g/dL (32.0-36.0) 12/13/19 07:02 RDW 14.3 % (11.7-14.6) 12/13/19 07:02 Plt Count 184 x1000/uL (130-400) 12/13/19 07:02 MPV 10.2 fL (8.0-11.0) 12/13/19 07:02 Sodium 138 mmol/L (136-145) 12/11/19 08:30 Potassium 3.5 mmol/L (3.5-5.1) 12/11/19 08:30 Chloride 104 mmol/L (98-107) 12/11/19 08:30 Carbon Dioxide 24.5 mmol/L (21.0-32.0) 12/11/19 08:30 Anion Gap 9.5 mmol/L (3-11) 12/11/19 08:30 BUN 3 mg/dL (7-18) L 12/11/19 08:30 Creatinine 0.57 mg/dL (0.55-1.02) 12/11/19 08:30 Estimated GFR/1.73 m2 >= 60.00 (mL/min/1.73m2) 12/11/19 08:30 Glucose 87 mg/dL (74-106) 12/11/19 08:30 Calcium 8.5 mg/dL (8.5-10.1) 12/11/19 08:30 Total Bilirubin 1.0 mg/dL (0.2-1.0) 12/11/19 08:30 AST 15 U/L (15-37) 12/11/19 08:30 ALT 10 U/L (14-59) L 12/11/19 08:30 Alkaline Phosphatase 140 U/L (46-116) H 12/11/19 08:30 Total Protein 6.9 g/dL (6.4-8.2) 12/11/19 08:30 Albumin 2.8 g/dL (3.4-5.0) L 12/11/19 08:30 Ur Random Creatinine 74.64 mg/dL 12/11/19 10:50 U Random Total Protein 10.4 mg/dL 12/11/19 10:50 U [place] Prot/Creat Ratio 0.13 12/11/19 10:50 COVID-19 PCR Negative (Negative) 12/11/19 08:50 Nasopharyn COVID-19 PCR Not Applicable 12/11/19 08:50 Ref Test Perform Site [facility] lab 12/11/19 08:50 Patient ABO/Rh B Negative 12/11/19 08:30 Antibody Screen Positive 12/11/19 08:30 Antibody Identification Anti-D 12/11/19 08:30
[2019-12-13] MEDS: Ibuprofen 600 MG TAB PO (15:29)
[2019-12-13] MEDS: Docusate Sodium 100 MG CAP PO (15:29)
[2019-12-14] MEDS: Acetaminophen 325 MG TAB 650 MG PO (07:31)
[2019-12-14] MEDS: Ibuprofen 600 MG TAB PO (07:31)
[2019-12-14] MEDS: Docusate Sodium 100 MG CAP PO (07:32)
--- NOTE | 2019-12-14 08:05 | PGE_ITS ---
Date of Service Date of service: 12/14/19 Time of Service: 08:05 Assessment and Plan Assessment and plan (1) (normal spontaneous vaginal delivery): Status: Acute Assessment and plan: day #2, ambulating, tolerating regular diet and oral pain medication. Breast-feeding without difficulty. (2) High-risk in third trimester: Status: Acute (3) Gestational hypertension: Status: Acute Assessment and plan: Blood pressures remained stable. No signs or symptoms of preeclampsia. Will discharge home today. Mom staying as of border due to elevated bilirubin in baby Subjective Subjective Patient reports: no new complaints, tolerating a regular diet and voiding w/o difficulty; denies shortness of breath Interval history since last seen: Lochia is physiologic. Breast-feeding. Baby with elevated bilirubin will stay as a border today discharged from the hospital today Exam Const General: cooperative, healthy appearing, comfortable and no acute distress Orientation: oriented x3 Eyes General: appearance normal, both eyes and all related structures Resp Effort & Inspection: normal respiratory effort Auscultation: clear to auscultation bilaterally Cardio Rate: regular rate Rhythm: regular rhythm GI Inspection: normal to inspection Auscultation: normal bowel sounds Other: Uterus firm below the umbilicus per nursing Extrem General: calf tenderness and edema (1+ lower extremity edema) Laterality: bilateral Objective Objective Clinical Data: Abnormal lab results 12/13/19 Range/Units 07:02 WBC 13.75 H (4.4-10.8) k/cumm Hgb 11.3 L (12.0-15.5) g/dL Hct 34.7 L (36.0-46.0) % Vital Signs Pain Level 7 12/14/19 07:31 Laboratory Results WBC 13.75 k/cumm (4.4-10.8) H 12/13/19 07:02 RBC 4.03 m/cumm (4.00-5.20) 12/13/19 07:02 Hgb 11.3 g/dL (12.0-15.5) L 12/13/19 07:02 Hct 34.7 % (36.0-46.0) L 12/13/19 07:02 MCV 86.1 fL (80-95) 12/13/19 07:02 MCH 28.0 pg (27.0-33.0) 12/13/19 07:02 MCHC 32.6 g/dL (32.0-36.0) 12/13/19 07:02 RDW 14.3 % (11.7-14.6) 12/13/19 07:02 Plt Count 184 x1000/uL (130-400) 12/13/19 07:02 MPV 10.2 fL (8.0-11.0) 12/13/19 07:02 Sodium 138 mmol/L (136-145) 12/11/19 08:30 Potassium 3.5 mmol/L (3.5-5.1) 12/11/19 08:30 Chloride 104 mmol/L (98-107) 12/11/19 08:30 Carbon Dioxide 24.5 mmol/L (21.0-32.0) 12/11/19 08:30 Anion Gap 9.5 mmol/L (3-11) 12/11/19 08:30 BUN 3 mg/dL (7-18) L 12/11/19 08:30 Creatinine 0.57 mg/dL (0.55-1.02) 12/11/19 08:30 Estimated GFR/1.73 m2 >= 60.00 (mL/min/1.73m2) 12/11/19 08:30 Glucose 87 mg/dL (74-106) 12/11/19 08:30 Calcium 8.5 mg/dL (8.5-10.1) 12/11/19 08:30 Total Bilirubin 1.0 mg/dL (0.2-1.0) 12/11/19 08:30 AST 15 U/L (15-37) 12/11/19 08:30 ALT 10 U/L (14-59) L 12/11/19 08:30 Alkaline Phosphatase 140 U/L (46-116) H 12/11/19 08:30 Total Protein 6.9 g/dL (6.4-8.2) 12/11/19 08:30 Albumin 2.8 g/dL (3.4-5.0) L 12/11/19 08:30 Ur Random Creatinine 74.64 mg/dL 12/11/19 10:50 U Random Total Protein 10.4 mg/dL 12/11/19 10:50 U [place] Prot/Creat Ratio 0.13 12/11/19 10:50 COVID-19 PCR Negative (Negative) 12/11/19 08:50 Nasopharyn COVID-19 PCR Not Applicable 12/11/19 08:50 Ref Test Perform Site [facility] lab 12/11/19 08:50 Patient ABO/Rh B Negative 12/11/19 08:30 Antibody Screen Positive 12/11/19 08:30 Antibody Identification Anti-D 12/11/19 08:30
--- NOTE | 2019-12-14 08:09 | DSE_ITS ---
Date of service: 12/14/19 DS: Diagnosis Discharge Diagnosis (1) (normal spontaneous vaginal delivery): Status: Acute (2) High-risk in third trimester: Status: Acute (3) Gestational hypertension: Status: Acute Discharge Plan Disposition Patient Disposition: HOME Condition: Good Discharge Details Reason For Visit: GESTATIONAL HYPERTENSION Admit Date/Time: 12/11/19 07:56 Admit Provider: Tita Madrigal Attending Provider: Tita Madrigal [facility] Course: Patient had a medically indicated induction of labor at 37 weeks due to gestational hypertension. She initially received 1 dose of Cytotec. Subsequently Pitocin augmentation was begun with limited cervical change. Leung balloon for cervical ripening along with active Pitocin management were performed she had artificial rupture of membranes and progressed into normal spontaneous labor. She had delivery of a viable male infant on 711. She had uncomplicated course and was discharged home day #2 in stable condition. Home Meds and New Rx's Prescriptions: New ibuprofen [IBU] 600 mg Tablet 600 mg PO Q6H PRN PRN10 Days Qty: 60 RF: 1 Continued prenat.vits,zulema,wus-nkym-zvdde Tablet 1 tab PO DAILY RF: 0 [id number]-aiqqjxrzppqvo-ddvb [Fioricet] 50-300-40 mg capsule 1 cap PO Q6H PRN (Reason: pain) Qty: 30 RF: 0 acetaminophen 500 mg capsule 500 mg PO Q6H PRN (Reason: fever) Qty: 1 RF: 0 esomeprazole magnesium [Nexium] 40 mg capsule,delayed release(DR/EC) 40 mg PO DAILY Qty: 60 RF: 3 sumatriptan succinate [Imitrex] 50 mg tablet See Rx Instructions PO .COMPLEX Qty: 10 RF: 0 cyclobenzaprine 5 mg tablet 5 mg PO TID PRN (Reason: muscle spasm) Qty: 20 RF: 1 metoclopramide HCl [Reglan] 10 mg tablet 10 mg PO Q6H PRN (Reason: nausea and vomiting) Qty: 10 RF: 0 Discharge Instructions Instructions: Vaginal Delivery (DC) Additional Instructions: Needs appointment with Dr. Rohan haddad 2 weeks Activity:: Pelvic rest for 6 weeks Equipment/Supplies:: No Equipment Needed Diet:: Normal Diet Discharge Orders Discharge Orders: Discharge Order (Routine); Ordered 12/14/19 Ordered By: Tita Madrigal DS: Summary Status at Discharge Functional status at discharge: independent ambulation Overall status at discharge: patient is back to baseline Mental Status: mental status grossly normal Speech and Movement: speech and movement normal Mood: congruent mood Affect: normal affect Exam Psych Mental Status: mental status grossly normal Speech and Movement: speech and movement normal Mood: congruent mood Affect: normal affect DS: Data Vitals/I&O Vitals and I&O: Vital Signs Pain Level 7 12/14/19 07:31 [facility] Medical History Abdominal pain during (Acute) 09/23/2019 Rx with Nexium Anxiety (Chronic) Asthma affecting , antepartum Encounter for IUD removal (Resolved) Gestational hypertension (Acute) 09/18/2019. Onset of BPs 152/82. Negative CMP. urine P/C ratio 1.2 High-risk in second trimester (Acute) History of frequent headaches (Acute) 09/2019 no relief with Fioricet. History of depression, currently in first trimester (Acute) Nausea and vomiting during (Acute) Ondansetron not effective. 09/17/2019 will begin Reglan. Patient will follow-up 09/21/2019 regarding symptoms (normal spontaneous vaginal delivery) (Acute) Preeclampsia (Acute) (Acute) 05/19/19. ANGEL 01/03/20. Seasonal allergies (Acute) Vaginal bleeding during (Acute) Surgical History Tonsillectomy and adenoidectomy (06/10/13) Family History Mother Asthma Father Neoplasm stomach cancer age 17 remission now Sister Asthma Brother Asthma Brother ADHD Paternal Grandmother Diabetes Paternal Grandfather Cancer liver CA Social History Smoking/Tobacco Use Status: Never Drug use: Never Household members: significant other, children and other [facility] house Number of Children: 1 Current gender identity: female What type of physical activity do you participate in: walking Do you feel safe in your relationship?: Yes History History 3 Para 1 Hx # Term Pregnancies 1 Multiple births Hx # Pregnancies Ectopic pregnancies AB induced Hx Number of Living Children AB spontaneous 1 Past Pregnancies Del. Date GA/Weeks # Outcome Route Wgt Sex Labor Lgth Anesthes ia Location Prov Complic 06/04/16 Unsuccessful 10/28/17 No Successful vaginal 7 lb 11 oz Female [address] Mendoza [facility] Delivery Date: 06/04/16 SAB no D and C Mindi Zamudio Delivery Date: 10/28/17 GHTN, H/As, edema beginning 35w. IOL @ 39w. HTN resolved . Debbie Saeed
--- NOTE | 2019-12-14 08:15 | DSE_ITS ---
DS: Diagnosis Discharge Diagnosis (1) (normal spontaneous vaginal delivery): Status: Acute (2) High-risk in third trimester: Status: Acute (3) Gestational hypertension: Status: Acute Discharge Plan Disposition Patient Disposition: HOME Condition: Good Discharge Details Reason For Visit: GESTATIONAL HYPERTENSION Admit Date/Time: 12/11/19 07:56 Admit Provider: Tita Madrigal Attending Provider: Tita Madrigal Primary Care Provider: [facility] Hospital Course: Patient had a medically indicated induction of labor at 37 weeks due to gestational hypertension. She initially received 1 dose of Cytotec. Subsequently Pitocin augmentation was begun with limited cervical change. Leung balloon for cervical ripening along with active Pitocin management were performed she had artificial rupture of membranes and progressed into normal spontaneous labor. She had delivery of a viable male infant on 711. She had uncomplicated course and was discharged home day #2 in stable condition. Home Meds and New Rx's Prescriptions: New ibuprofen [IBU] 600 mg Tablet 600 mg PO Q6H PRN PRN10 Days Qty: 60 RF: 1 Continued prenat.vits,zulema,prn-dfbx-qajne Tablet 1 tab PO DAILY RF: 0 dgvcnpyaah-zdaipdhyimcgt-tckl [Fioricet] 50-300-40 mg capsule 1 cap PO Q6H PRN (Reason: pain) Qty: 30 RF: 0 acetaminophen 500 mg capsule 500 mg PO Q6H PRN (Reason: fever) Qty: 1 RF: 0 esomeprazole magnesium [Nexium] 40 mg capsule,delayed release(DR/EC) 40 mg PO DAILY Qty: 60 RF: 3 sumatriptan succinate [Imitrex] 50 mg tablet See Rx Instructions PO .COMPLEX Qty: 10 RF: 0 cyclobenzaprine 5 mg tablet 5 mg PO TID PRN (Reason: muscle spasm) Qty: 20 RF: 1 metoclopramide HCl [Reglan] 10 mg tablet 10 mg PO Q6H PRN (Reason: nausea and vomiting) Qty: 10 RF: 0 Discharge Instructions Instructions: Vaginal Delivery (DC) Additional Instructions: Needs appointment with Dr. Madrigal boo 2 weeks Activity:: Pelvic rest for 6 weeks Equipment/Supplies:: No Equipment Needed Diet:: Normal Diet Discharge Orders Discharge Orders: Discharge Order (Routine); Ordered 12/14/19 Ordered By: Tita Madrigal DS: Summary Status at Discharge Functional status at discharge: independent ambulation Overall status at discharge: patient is back to baseline Mental Status: mental status grossly normal Speech and Movement: speech and movement normal Mood: congruent mood Affect: normal affect Exam Narrative Exam Narrative: See physical examination progress note dated 12/14/2019 Psych Mental Status: mental status grossly normal Speech and Movement: speech and movement normal Mood: congruent mood Affect: normal affect DS: Data Vitals/I&O Vitals and I&O: Vital Signs Pain Level 7 12/14/19 07:31 [facility] Medical History Abdominal pain during (Acute) 09/23/2019 Rx with Nexium Anxiety (Chronic) Asthma affecting , antepartum Encounter for IUD removal (Resolved) Gestational hypertension (Acute) 09/18/2019. Onset of BPs 152/82. Negative CMP. urine P/C ratio 1.2 High-risk in second trimester (Acute) History of frequent headaches (Acute) 09/2019 no relief with Fioricet. History of depression, currently in first trimester (Acute) Nausea and vomiting during (Acute) Ondansetron not effective. 09/17/2019 will begin Reglan. Patient will follow-up 09/21/2019 regarding symptoms (normal spontaneous vaginal delivery) (Acute) Preeclampsia (Acute) (Acute) 05/19/19. ANGEL 01/03/20. Seasonal allergies (Acute) Vaginal bleeding during (Acute) Surgical History Tonsillectomy and adenoidectomy (06/10/13) Family History Mother Asthma Father Neoplasm stomach cancer age 17 remission now Sister Asthma Brother Asthma Brother ADHD Paternal Grandmother Diabetes Paternal Grandfather Cancer liver CA Social History Smoking/Tobacco Use Status: Never Drug use: Never Household members: significant other, children and other Details: FOB of this [facility] Housing: house Number of Children: 1 Current gender identity: female What type of physical activity do you participate in: walking Do you feel safe in your relationship?: Yes History History 3 Para 1 Hx # Term Pregnancies 1 Multiple births Hx # Pregnancies Ectopic pregnancies AB induced Hx Number of Living Children AB spontaneous 1 Past Pregnancies Del. Date GA/Weeks # Outcome Route Wgt Sex Labor Lgth Anesthes ia Location Prov Complic 06/04/16 Unsuccessful 10/28/17 No Successful vaginal 7 lb 11 oz Female [address] Mendoza [place] Delivery Date: 06/04/16 SAB no D and C Mindi Zamudio Delivery Date: 10/28/17 GHTN, H/As, edema beginning 35w. IOL @ 39w. HTN resolved . Debbie Saeed
== END 2019-12-14 08:50 | disposition home or self-care (01) | DRG 807 ==
PROVIDERS: Admitting Provider Obstetrics & Gynecology; PCP Family Medicine; Visit Provider Obstetrics & Gynecology
DX: O69.81X0 Labor and delivery complicated by cord around neck, without compression, not applicable or unspecified (principal); Z37.0 Single live birth; O75.89 Other specified complications of labor and delivery; O13.4 Gestational [pregnancy-induced] hypertension without significant proteinuria, complicating childbirth; Z3A.37 37 weeks gestation of pregnancy; Z11.59 Encounter for screening for other viral diseases; O99.344 Other mental disorders complicating childbirth; F41.9 Anxiety disorder, unspecified; Z86.59 Personal history of other mental and behavioral disorders; Z67.21 Type B blood, Rh negative
CPT/HCPCS: 36415; 80053; 85027; 86850; 86900; 86901; 99223; 99232; 99238; U0003; 82565; 84156; 86870; J2405; J3010; J3490

== ENCOUNTER 2024-01-23 10:24 | Outpatient (CLI) | payer MEDICAID, SELFPAY ==
[2024-01-23 10:53] LABS: TSH (W/Ref FT4) 2.05 uIU/mL (0.36-3.74)
[2024-01-23 10:54] LABS: HCG Quant, Pregnancy < 1 mIU/mL (1-3)
== END 2024-01-23 10:25 | disposition home or self-care (01) ==
LOC: LBO 10:25
PROVIDERS: PCP Family Medicine; Visit Provider Advanced Practice Midwife
DX: O20.0 Threatened abortion (principal); R79.89 Other specified abnormal findings of blood chemistry
CPT/HCPCS: 36415; 84443; 84702

== ENCOUNTER 2024-09-03 09:51 | Emergency (ER) | payer MEDICAID, SELFPAY ==
[2024-09-03 09:59] VITALS: BP 160/74; PULSE 85; RESP 16; TEMP 36.8; O2SAT 100
--- NOTE | 2024-09-03 10:20 | ED.GENADUL_ITS ---
Discharge Plan Disposition Patient Disposition: Home Condition: Stable Discharge Details Clinical Impression: Hives Primary Care Provider: Jean Palm ED Provider: Lisha Shaw Home Meds and New Rx's Prescriptions: New prednisone 5 mg tablets,dose pack 10 mg PO DIRECTED Qty: 39 0RF Rx Instructions: see taper instructions 60 mg PO for 3 days 40 mg PO for 3 days 20 mg PO for 3 days 10 mg PO for 3 days epinephrine 0.3 mg/0.3 mL auto-injector 0.3 mg IM ONCE Qty: 2 0RF Rx Instructions: as a single dose; may repeat once No Action ibuprofen [IBU] 800 mg tablet 800 mg PO Q8H PRN (Reason: pain) Qty: 30 1RF acetaminophen 500 mg capsule 500 mg PO Q6H PRN (Reason: fever) Qty: 1 0RF rrpmsgpjhhuw-Pd-mgrg-minerals 18-0.4 mg tablet 1 tab PO DAILY albuterol sulfate [ProAir HFA] 90 mcg/actuation HFA aerosol inhaler 2 puff inhalation Q4H PRN Zyrtec 10 mg capsule 10 mg PO DAILY PRN methylprednisolone 4 mg tablets,dose pack 4 mg PO DAILY Patient Comments: USE DIRECTED ON PACKAGE INSTRUCTIONS Discharge Instructions Instructions: Hives, Allergic Reaction ED Additional Instructions: Continue to take steroid and antihistamine. Follow-up for allergy testing. If you require use of epinephrine please come to the emergency department as soon as possible. Referrals: Jean Palm [Primary Care Provider] - Discharge Data Discharge Physician: Lisha Shaw [facility] General Date/Time Provider Initiated Documentation: 09/03/24 10:02 . [facility] Narrative: 28-year-old female presents for evaluation of hives. Patient states that she began having hives several days ago. She was seen by provider and started on Medrol Dosepak, Pepcid, Benadryl. She has been using calamine lotion. She states that she continues to have hives. After taking medication they will go away for an hour or 2 however they return. No known new food, lotions, detergents, or medications. She has had hives in the past however they have not lasted this long. She has had a referral to ENT for allergy testing. She has had allergy testing in the past. Changes today she felt like she may have some itching in her throat. No difficulty swallowing. No shortness of breath. She does not have epinephrine pen at home. She has not required epinephrine in the past. Related Data Home Medications ?Medication ?Instructions ?Recorded ?Confirmed acetaminophen 500 mg capsule 500 mg PO Q6H PRN fever #1 cap 09/02/19 09/03/24 ibuprofen 800 mg tablet (IBU) 800 mg PO Q8H PRN pain #30 tabs 01/29/20 09/03/24 albuterol sulfate 90 mcg/actuation 2 puff inhalation Q4H PRN 04/12/20 09/03/24 aerosol inhaler (ProAir HFA) cetirizine 10 mg capsule (Zyrtec) 10 mg PO DAILY PRN 08/15/20 09/03/24 laklsqcfapan-Lg-yghz-minerals 18 1 tab PO DAILY 09/27/20 09/03/24 mg-0.4 mg tablet epinephrine 0.3 mg/0.3 mL 0.3 mg (0.3 mL) IM ONCE #2 ea 09/03/24 injection, auto-injector methylprednisolone 4 mg tablets in 4 mg PO DAILY 09/03/24 09/03/24 a dose pack prednisone 5 mg tablets in a dose 10 mg (2 x 5 mg) PO DIRECTED 09/03/24 pack #39 dose pk Previous Rx's ?Medication ?Instructions ?Recorded acetaminophen 500 mg capsule 500 mg PO Q6H PRN fever #1 cap 09/02/19 ibuprofen 800 mg tablet (IBU) 800 mg PO Q8H PRN pain #30 tabs 01/29/20 epinephrine 0.3 mg/0.3 mL 0.3 mg (0.3 mL) IM ONCE #2 ea 09/03/24 injection, auto-injector prednisone 5 mg tablets in a dose 10 mg (2 x 5 mg) PO DIRECTED 09/03/24 pack #39 dose pk Allergies Allergy/AdvReac Type Severity Reaction Status Date / Time pollen extracts Allergy Mild runny nose Verified 09/03/24 10:04 General Stated Complaint: RashLesion AYAKA: 4 Review of Systems Narrative: Remainder of review of systems otherwise negative except for as noted in the HPI x 10. Exam Narrative Exam Narrative: General: non-toxic, no respiratory distress, comfortable HEENT: normocephalic, atraumatic, lids and lashes normal, PERRL, EOMI, anicteric sclera, no conjunctival injection, moist oral mucosa, no fungi today, uvula midline Card: regular rate and rhythm, S1S2, no murmurs, rubs, or gallops Lungs: good air entry, clear to auscultation bilaterally. no wheezes, rales, rhonchi, or retractions Abd: soft, non-tender, non-distended, normal bowel sounds, no rebound or guarding, no peritoneal signs Musculoskeletal: full range of motion of arms and legs, no tenderness to palpation. no clubbing, cyanosis, or edema Neurologic: appropriate for age, strength normal Psych: alert and oriented Skin: Several flat hives to extremities, otherwise no petechiae, no lesions, warm and dry Course 28-year-old female presents for evaluation of ongoing hives. She has had intermittent hives over the last 4 to 5 days. She was placed on a Medrol Dosepak and will be done with her steroids today. I do feel that given her ongoing symptoms she will require a longer taper. Will start her on a prednisone taper. She will continue taking her antihistamines. She is given a prescription for epinephrine pens in case symptoms worsen. There is no indication for epinephrine at this time. She understands that it is not clear what the inciting allergen is and therefore she may still be getting exposed to the allergen. She will follow-up for allergy testing. She understands indications to return. Vital Signs Vital signs: Vital Signs Temperature 36.8 C 09/03/24 09:59 Pulse 85 09/03/24 09:59 Respiratory Rate 16 09/03/24 09:59 Blood Pressure 160/4 H 09/03/24 09:59 Pulse Oximetry 100 09/03/24 09:59 Temperature 36.8 C 09/03/24 09:59 Temperature Source Oral 09/03/24 09:59 Pulse 85 09/03/24 09:59 Respiratory Rate 16 09/03/24 09:59 Blood Pressure 160/4 H 09/03/24 09:59 Blood Pressure Position Sitting 09/03/24 09:59 Pulse Oximetry 100 09/03/24 09:59 Oxygen Delivery Method Room Air 09/03/24 09:59 Oxygen Flow Rate 0 09/03/24 09:59 Pain Level 0 09/03/24 09:59 Medical Decision Making Quality:SDOH Health Related Social Needs: No Data to Display PFSH All Active Problems Hives (Acute) Pre-conception counseling (Acute) Miscarriage, threatened, early (Acute) Contraceptive management (Acute) Ovarian cyst (Acute) Vasovagal syncope (Acute) 09/02/2019. Neurology referral performed by telemedicine. Nothing in her symptoms to suggest seizures. She recommended sertraline to prevent vasovagal episodes patient declined. Anxiety (Chronic) Seasonal allergies (Acute) History of frequent headaches (Acute) 09/2019 no relief with Fioricet. Medical History High thyroid stimulating hormone (TSH) level RhD negative Delayed menses Uterine prolapse IUD surveillance Bilateral carpal tunnel syndrome Knee pain Erythema Disorder of urinary tract Exercise induced bronchospasm Chronic rhinitis Preeclampsia Surgical History Tonsillectomy and adenoidectomy (06/10/13) Family History Mother Asthma Father Neoplasm stomach cancer age 17 remission now Sister Asthma Brother Asthma Brother ADHD Paternal Grandmother Diabetes Hypertension Paternal Grandfather Cancer liver CA Social History Smoking/Tobacco Use Status: Never Smoking risk assessment performed?: Yes Alcohol Intake: current Alcohol Intake frequency: holidays/special occasions only Drug use: Never Substance use type: does not use Household members: significant other, children and other Details: Partner- Ethan. Keane-Tevin, S-Baljinder Housing: house Number of Children: 2 current occupation: dairy farm Pets and animals: Yes Pets and animals: cat(s), dog(s) and bird(s) Current gender identity: female What is your relationship status?: Panel score (0-1 are the most socially isolated patients): 1 What type of physical activity do you participate in: walking Seatbelt use: always Do you feel safe at home: Yes Do you feel safe in your relationship?: Yes Female Reproductive History Menstrual control method: implanted History History 3 Para 2 Hx # Term Pregnancies 2 Multiple births Hx # Pregnancies Ectopic pregnancies AB induced Hx Number of Living Children AB spontaneous 1 Past Pregnancies Del. Date GA/Weeks # Preg Succ Route Wgt Sex Labor Lgth Anesth esia Location Prov Complic 06/04/16 10/28/17 No vaginal 3486.991 g Female 12 hours topical crea m Dr Mendoza [facility] 12/12/19 37 No vaginal 3401.[address] Lou Madrigal Delivery Date: 06/04/16 Last Updated by: Mindi Zamudio CNM SAB no D and C Delivery Date: 10/28/17 Last Updated by: Debbie Fiore M.D. GHTN, H/As, edema beginning 35w. IOL @ 39w. HTN resolved . [place] Delivery Date: 12/12/19 Last Updated by: Debbie Fiore M.D. IOL for HTN. Teresa Gale. 2nd degree lac.
[2024-09-03 10:31] VITALS: BP 123/63; PULSE 82; RESP 20; O2SAT 100
== END 2024-09-03 10:36 | disposition home or self-care (01) ==
LOC: ER 10:39
PROVIDERS: Emergency Provider Emergency Medicine Emergency Medical Services; PCP Family Medicine
DX: L50.9 Urticaria, unspecified (principal)
CPT/HCPCS: 99283